=== PATIENT | female | born 1965 | race Two or more races ===

== ENCOUNTER 2020-05-02 14:47 | Inpatient (IN) | payer MEDICAID ==
[~2020-05-02] VITALS: Ht 167.6 cm; Wt 119.3 kg
[2020-05-02] MEDS ORDERED: VANCOMYCIN 1 GM in IV D5W 250 ML IV ONE (15:00)
[2020-05-02] MEDS ORDERED: CEFEPIME 1 GM in IV D5W 50 ML IV ONE (15:00)
[2020-05-02] MEDS ORDERED: DEXAMETHASONE SOD PHOSPHATE 10 MG/ML VIAL IV ONE (15:00)
[2020-05-02] MEDS ORDERED: IV NS 0.9% 1,897.6 ML IV ONE (15:30)
[2020-05-02 15:42] LABS: BASOPHILS % (AUTO) 0.4 % (0.0-2.0); EOSINOPHILS % (AUTO) 0.1 % (0.0-6.0); HEMATOCRIT 43 % (33-45); HEMOGLOBIN 14.2 g/dL (11.5-14.8); LYMPHOCYTES # (AUTO) 0.7 /CMM (0.8-4.8); LYMPHOCYTES % (AUTO) 11.7 % (20.0-44.0); MEAN CORPUSCULAR HGB CONC 33 g/dl (31.0-36.0); MEAN CORPUSCULAR VOLUME 88 fL (82-100); MONOCYTES # (AUTO) 0.6 /CMM (0.1-1.30); MONOCYTES % (AUTO) 9.6 % (2.0-12.0); NEUTROPHILS # (AUTO) 4.7 /CMM (1.8-8.9); NEUTROPHILS % (AUTO) 78.2 % (43.0-81.0); PLATELET COUNT (AUTO) 152 /CMM (150-450); RED BLOOD CELL COUNT(AUTO) 4.96 MIL/uL (4.0-5.2)
[2020-05-02 15:50] LABS: CALCIUM, SERUM 8.4 mg/dL (8.5-10.1); CARBON DIOXIDE 25 mmol/L (21-32); CHLORIDE 99 mmol/L (98-107); CREATININE 1.6 mg/dL (0.6-1.3); GLUCOSE 168 mg/dL (74-106); POTASSIUM 4.1 mmol/L (3.5-5.1); SODIUM SERUM 134 mmol/L (136-145); UREA NITROGEN, BLOOD 28 mg/dL (7-18)
[2020-05-02 15:57] LABS: ALANINE AMINOTRANSFERASE 41 U/L (12-78); ALBUMIN 2.6 g/dL (3.4-5.0); ALKALINE PHOSPHATASE 80 U/L (46-116); ASPARTATE AMINOTRANSFERASE 70 U/L (15-37); BILIRUBIN,DIRECT 0.2 mg/dL (0.0-0.2); BILIRUBIN,TOTAL 0.4 mg/dL (0.2-1.0); TOTAL PROTEIN, SERUM 7.5 g/dL (6.4-8.2)
--- NOTE | 2020-05-02 16:00 | NUR ---
LIZBET FROM HOME TO ER BED 7. AAOX3. BREATHING RAOID AND SHALLOW. BROUGHT IN FOR LOW O2 SAT, NOTED @ 71% ON RA. PT WAS PLACED ON HI FLOW O2 @ 50LPM BUT STILL SATTING @ 89%. INCREASE TO 60% HI FLOW AND NON REBREATHER MASK @ 15LPM, SATTING AT 91%. PT WAS REPORTED COVID POSITIVE. WAS AT THE BEDSIDE FOR EVAL. ORDERS RECEIVED, NOTED AND CARRIED OUT. IV LINE ESTABLISHED ON L AC 18G. BLOOD DRAWN AND GIVEN TO CAREER GUIDANCE COUNSELOR. WILL CONTINUE TO MONITOR
[2020-05-02] MEDS ORDERED: DEXAMETHASONE SOD PHOSPHATE 10 MG/ML VIAL ONE (16:07)
[2020-05-02 16:08] LABS: ABG OXYGEN SATURATION 85.3 % (92.0-98.5); ABG PCO2 34.7 mmHg (35.0-45.0); ABG PH 7.416 (7.350-7.450); ABG PO2 49.4 mmHg (75.0-100.0); AaDO2 628.9 mmHg; COHb 0.7 % (0.5-1.5); MetHb 0.4 % (0.0-1.5); O2Hb 84.4 % (94.0-97.0); SITE, ABG Right Radial; VENT MODE, BG HI FLO 60L 100%
--- NOTE | 2020-05-02 16:24 | NUR ---
PT NOTED HYPOTENSIVE. MD AWARE. NS FLUID CHALLENGE RUNNING.
--- NOTE | 2020-05-02 16:57 | NUR ---
ROOM ASSIGNMENT: [id number] ICU
--- NOTE | 2020-05-02 17:22 | NUR ---
REPORT GIVEN TO AMBERLY HAHN FOR GENARO
[2020-05-02] MEDS ORDERED: ONDANSETRON HCL/PF 4 MG/2 ML VIAL IVP PRN (17:30)
[2020-05-02] MEDS ORDERED: Z GUARD REMEDY 2 OZ OINT TP PRN (17:30)
[2020-05-02] MEDS ORDERED: ALBUTEROL SULFATE INH 18 GM HFA.AER.AD IH PRN (17:30)
[2020-05-02] MEDS ORDERED: ENOXAPARIN SODIUM 40 MG/0.4 ML DISP.SYRIN SQ SCH (18:00)
--- NOTE | 2020-05-02 18:08 | NUR ---
[facility] [phone]
--- NOTE | 2020-05-02 18:09 | NUR ---
pt transported to unit on gurney with EMT and RN at bedside w/ acls protocol. nad noted during transport.
[2020-05-02 19:00] VITALS: BP 123/77
--- NOTE | 2020-05-02 19:00 | NUR ---
SPONGE MAKER INITIAL SHIFT NOTES RECEIVED REPORT FROM DAY SHIFT NURSE. PATIENT IN BED, AWAKE, MARSHALLESE SPEAKING, ALERT AND ORIENTED X4, ABLE TO VERBALIZE NEEDS. MARSHALLESE SPEAKING STAFF AT BEDSIDE TO AID IN TRANSLATION. ON HI FLOW O2 @ 60LPM, FIO2 100% WITH NONREBREATHER ON TOP @ 15LPM, SATTING 86-88% BREATHING IS EVEN, TACHYPNEIC @ 35BPM, NONLABORED AT THIS TIME. LABORED BREATHING ONLY NOTED UPON EXERTION. SINUS RHYTHM ON LEAD MATERIAL HANDLER. ISOLATION PRECAUTIONS FOR COVID-19 OBSERVED. 2ND IV ACCESS OBTAINED, LEFT WRIST #[id number]. PLAN OF CARE DISCUSSED WITH THE PATIENT, WHOM VERBALIZES UNDERSTANDING, CALL LIGHT LEFT WITHIN EASY REACH, HOB KEPT ELEVATED TO AID IN BREATHING.
[2020-05-02 19:25] LABS: FERRITIN 796 ng/mL (8-388)
[2020-05-02] MEDS ORDERED: LOSA1TAB36 PO (19:37)
[2020-05-02 20:00] VITALS: BP 120/68
[2020-05-02] MEDS: AZITHROMYCIN 500 MG in IV D5W 250 ML IV SCH (20:00)
--- NOTE | 2020-05-02 20:00 | NUR ---
PROFESSOR/NURSE ANESTHETIST NOTES PATIENT ATTEMPTED TO VOID USING BEDBAN, BUT UNSUCCESSFUL. WHILE PROVIDING PARTIAL BED BATH, PATIENT IN RESPIRATORY DISTRESS WHILE TURNING. TURNER CATHETER INSERTED PER MD ORDER USING ASEPTIC TECHNIQUE, TOLERATED PROCEDURE WELL, WILL CONTINUE TO MONITOR
[2020-05-02 21:00] VITALS: BP 118/74
--- NOTE | 2020-05-02 21:00 | NUR ---
TUMBLER DRIER OPERATOR NOTES ATTEMPTED TO CALL FAMILY FOR UPDATES, BUT TELEPHONE NUMBER FROM CHART IS "DISCONNECTED". PER PATIENT, HER CELL PHONE NUMBER IS [phone]. ATTEMPTED TO ALSO CALL CELLPHONE, GOES TO VOICEMAIL. WILL TRY TO CALL CELLPHONE AGAIN AT LATER TIME. PATIENT MADE AWARE THAT WE ARE UNABLE TO REACH HER FAMILY. PER PATIENT, SHE CANNOT RECALL ANY OTHER PHONE NUMBERS
[2020-05-02 22:00] VITALS: BP 117/70
--- NOTE | 2020-05-02 22:00 | NUR ---
DOOR PATCHER NOTES RN ABLE TO SPEAK TO PATIENT'S DAUGHTER, TEJA. IRIS UPDATED REGARDING CURRENT STATUS AND PLAN OF CARE FOR THE PATIENT. PER TEJA, SHE WILL TRY TO CALL TOMORROW MORNING TO SPEAK TO THE PATIENT
[2020-05-02] MEDS: CEFTRIAXONE 1 G in IV D5W 50 ML IV SCH (22:10)
[2020-05-02 23:00] VITALS: BP 123/80
[2020-05-03] VITALS (24 sets, daily range): BP systolic 101–132; BP diastolic 64–78
[2020-05-03 00:10] LABS: ABG BASE EXCESS -5.8 mmol/L; ABG PCO2 30.4 mmHg (35.0-45.0); ABG PO2 70.1 mmHg (75.0-100.0); AaDO2 612.5 mmHg; MetHb 0.1 % (0.0-1.5); O2Hb 93.9 % (94.0-97.0); SITE, ABG Right Radial; VENT MODE, BG HFNC 60LPM 100%
--- NOTE | 2020-05-03 02:00 | NUR ---
SQL DEVELOPER NOTES SPO2 NOTED TO DROP TO THE LOW 80s. UPON ASSESSMENT, PATIENT IS CALM, NOT IN ANY ACUTE DISTRESS, STATES SHE IS ACTUALLY FEELING BETTER COMPARED TO THE START OF SHIFT. DUE TO LOWER THAN BASELINE SPO2, STAT ABG ORDERED BY CHARGE NURSE ED. DISCUSSED ABG RESULTS AND PATIENT'S CLINICAL PRESENTATION WITH DR BROOKS. PER DR BROOKS, CONTINUE TO MONITOR, NO NEW ORDERS OBTAINED AT THIS TIME. WILL CONTINUE TO MONITOR DIRECTED BY
[2020-05-03 05:04] LABS: BASOPHILS % (AUTO) 0.2 % (0.0-2.0); HEMATOCRIT 39 % (33-45); HEMOGLOBIN 12.9 g/dL (11.5-14.8); LYMPHOCYTES # (AUTO) 0.5 /CMM (0.8-4.8); LYMPHOCYTES % (AUTO) 10.4 % (20.0-44.0); MEAN CORPUSCULAR HGB CONC 33 g/dl (31.0-36.0); MEAN CORPUSCULAR VOLUME 88 fL (82-100); MONOCYTES # (AUTO) 0.5 /CMM (0.1-1.30); MONOCYTES % (AUTO) 10.4 % (2.0-12.0); PLATELET COUNT (AUTO) 164 /CMM (150-450); RED BLOOD CELL COUNT(AUTO) 4.47 MIL/uL (4.0-5.2); WHITE BLOOD COUNT (AUTO) 5.1 K/uL (4.3-11.0)
[2020-05-03 05:21] LABS: CALCIUM, SERUM 8.1 mg/dL (8.5-10.1); CREATININE 1.1 mg/dL (0.6-1.3); MAGNESIUM 2.1 mg/dL (1.8-2.4); PHOSPHORUS 2.7 mg/dL (2.5-4.9); POTASSIUM 4.4 mmol/L (3.5-5.1)
[2020-05-03 05:36] LABS: THYROID STIMULATING HORMONE 0.207 uIU/mL (0.358-3.74)
--- NOTE | 2020-05-03 06:30 | NUR ---
ELECTRIC MOTOR ASSEMBLER NOTES PATIENT RESTING IN BED, VERBALIZES THAT SHE IS FEELING BETTER COMPARED TO WHEN SHE FIRST CAME INTO THE HOSPITAL. REPOSITIONED FOR COMFORT. PATIENT REMAINS ON HFNC @ 60L/100% FIO2 AND NRM ON TOP @ 15LPM. SPO2 NOW HIGH 92%, BUT STILL NOTED TO DROP TO THE MID 80s ON OCCASION. WILL ENDORSE THE PATIENT TO THE AM SHIFT NURSE FOR CONTINUITY OF CARE
--- NOTE | 2020-05-03 07:30 | NUR ---
CLINICAL PHYSICIAN ASSISTANT AM NOTES RECEIVED PT IN BED, AWAKE, NORTHERN IRISH SPEAKING, ALERT AND ORIENTED X4, ABLE TO VERBALIZE NEEDS. NORTHER[place] IRISH SPEAKING STAFF AT BEDSIDE TO AID IN TRANSLATION. ON HI FLOW O2 @ 60LPM, FIO2 100% WITH NONREBREATHER ON TOP @ 15LPM, SATTING 88 - 93% BREATHING IS EVEN, TACHYPNEIC @ 30-38 BPM, NONLABORED AT THIS TIME. EXHIBITS LABORED BREATHING UPON EXERTION. SINUS RHYTHM ON SUPERVISOR PUBLICATIONS. LEFT AC G 18 WITH TKO, SITE CLEAR, LEFT WRIST G 20 FLUSHES WELL, SITE CLEAR, ISOLATION PRECAUTIONS FOR COVID-19 OBSERVED. BED REST FOR NOW, NO SKIN ISSUES, SOFT DIET, PLAN OF CARE DISCUSSED WITH THE PATIENT, VERBALIZED UNDERSTANDING, CALL LIGHT WITHIN EASY REACH, HOB KEPT ELEVATED TO AID IN BREATHING.SR UP X 2, BED LOW LOCKED, WILL CONTINUE TO MONITOR.
[2020-05-03 08:17] LABS: ABG BASE EXCESS -3.5 mmol/L; ABG OXYGEN SATURATION 89.9 % (92.0-98.5); ABG PCO2 35.1 mmHg (35.0-45.0); ABG PO2 58.4 mmHg (75.0-100.0); AaDO2 619.5 mmHg; COHb 0.2 % (0.5-1.5); MetHb 0.1 % (0.0-1.5); O2Hb 89.6 % (94.0-97.0); SITE, ABG Right Radial; VENT MODE, BG HFNC 100%
[2020-05-03] MEDS: PANTOPRAZOLE 40 MG TABLET.DR PO SCH (08:19)
[2020-05-03] MEDS: DEXAMETHASONE SOD PHOSPHATE 10 MG/ML VIAL IV SCH (08:20)
--- NOTE | 2020-05-03 09:30 | NUR ---
MINES SAFETY ENGINEER NOTES DUE MEDS GIVEN
[2020-05-03 14:29] LABS: ALBUMIN 2.2 g/dL (3.4-5.0); BILIRUBIN,DIRECT 0.1 mg/dL (0.0-0.2); BILIRUBIN,TOTAL 0.2 mg/dL (0.2-1.0); TOTAL PROTEIN, SERUM 6.8 g/dL (6.4-8.2)
[2020-05-03] MEDS: APIXABAN 5 MG TABLET PO SCH ×2 (14:55→17:00)
[2020-05-03] MEDS ORDERED: REMDESIVIR (CHARGED) 200 MG, *LOADING DOSE 1 EA in IV NS 0.9% 210 ML IV ONE (16:00)
[2020-05-03] MEDS: IV NS 0.9% 250 ML IV PRN (16:06)
--- NOTE | 2020-05-03 16:58 | NUR ---
TRAVEL MONEY ADVISOR NOTES REDEMSIVIR IV BAG 1 OF 4 STARTED.
--- NOTE | 2020-05-03 19:15 | NUR ---
SOFTWARE TESTING SPECIALIST CLOSING NOTES PATIENT RESTING, REMAINS AT 87%-92% 02 SATURATION WITH HFNC AND NRM. PATIENT UNABLE TO TOLERATE WITH MASK OFF. DESATURATES ON MILD EXERTION. NO SIGNIFICANT CHANGE IN CONDITION DURING THE WHOLE DAY SHIFT. ALL NEEDS MET AT THIS TIME. PM CARE DONE/TURNED/RESPOSITONEDQ 2 HOURS. FOR CONVALESCENT PLASMA TRANSFUSION. ENDORSED TO NEXT SHIFT FOR GENARO.
--- NOTE | 2020-05-03 19:30 | NUR ---
STEEL HEATER INITIAL SHIFT NOTES RECEIVED PATIENT IN BED, AWAKE, A/O X4. ON HFNC@ 60LPM / FIO2 100% WITH NRM @ 15LPM ON TOP, SPO2 IN THE LOW 80s. ALTHOUGH SPO2 IN THE LOW 80s, PATIENT NOT IN ACUTE DISTRESS. PATIENT IS CALM, ABLE TO ASSIST WITH TURNING, NOTED WITH INCREASED DYSPNEA UPON EXERTION, REPOSITIONED FOR COMFORT. BEDSIDE VALUE ENGINEER READS SINUS RHYTHM. TURNER CATHETER DRAINING YELLOW URINE VIA GRAVITY. WILL CONTINUE TO MONITOR
[2020-05-03] MEDS: AZITHROMYCIN 500 MG in IV D5W 250 ML IV SCH (20:05)
[2020-05-03] MEDS: CEFTRIAXONE 1 G in IV D5W 50 ML IV SCH (21:37)
[2020-05-03] MEDS: ACETAMINOPHEN 325 MG TABLET PO PRN (23:44)
[2020-05-04] VITALS (25 sets, daily range): BP systolic 104–137; BP diastolic 61–90
--- NOTE | 2020-05-04 | NUR ---
BATTERYMAN NOTES PATIENT WITH BM X1, ABLE TO USE BEDPAN. PARTIAL BEDBATH RENDERED PATIENT TOLERATED. REPOSITIONED FOR COMFORT. PATIENT REMAINS ON HFNC @ 60LPM/FIO2 100% WITH NRM @ 15LPM ON TOP, WITH BASELINE SPO2 LOW 80%. PATIENT MAINTAINS BASELINE MENTAL STATUS, TACHYPNEIC, BUT NOT IN ACUTE DISTRESS, CLAIMS SHE IS COMFORTABLE AT HIS TIME. ALL NEEDS ATTENDED TO
--- NOTE | 2020-05-04 02:01 | NUR ---
ICU RNN OTES PATIENTBS/P COVALESCENT PLAMA TRANSFUSION. PATIENT TOLERATED WELL, NO SIGNS AND SYMPTOMS OF ADVERSE TRANSFUSION REACTION AT THIS TIME. WILL CONTINUE TO MONITOR
--- NOTE | 2020-05-04 04:00 | NUR ---
OUTSOLE MOLDER NOTES PATIENT RESTING COMFORTABLY, SITTING UP IN BED. PATIENT REMAINS ON HFNC @60LPM / FIO2 100% WITH NRM @ 15LPM ON TOP. SPO2 NOW IN THE UPPER 70s - MID 80s, BUT NOT IN ACUTE DISTRESS, NO CHANGE IN MENTAL STATUS, BREATHING EVEN, SLIGHTLY TACHYPNEIC. ALL NEEDS MET. WILL CONTINUE TO MONITOR
[2020-05-04 04:58] LABS: BASOPHILS % (AUTO) 0.1 % (0.0-2.0); HEMATOCRIT 38 % (33-45); HEMOGLOBIN 12.4 g/dL (11.5-14.8); LYMPHOCYTES # (AUTO) 0.5 /CMM (0.8-4.8); LYMPHOCYTES % (AUTO) 5.4 % (20.0-44.0); MEAN CORPUSCULAR HGB CONC 33 g/dl (31.0-36.0); MEAN CORPUSCULAR VOLUME 88 fL (82-100); MONOCYTES % (AUTO) 11.8 % (2.0-12.0); NEUTROPHILS # (AUTO) 7.2 /CMM (1.8-8.9); NEUTROPHILS % (AUTO) 82.7 % (43.0-81.0); PLATELET COUNT (AUTO) 217 /CMM (150-450); RED BLOOD CELL COUNT(AUTO) 4.36 MIL/uL (4.0-5.2); WHITE BLOOD COUNT (AUTO) 8.7 K/uL (4.3-11.0)
--- NOTE | 2020-05-04 05:00 | NUR ---
CLINICAL BIOCHEMICAL GENETICIST NOTES PATIENT RESTING COMFORTABLY, SITTING UP IN BED. PATIENT REMAINS ON HFNC @60LPM / FIO2 100% WITH NRM @ 15LPM ON TOP. SPO2 NOW IN THE UPPER 70s - MID 80s, BUT NOT IN ACUTE DISTRESS, NO CHANGE IN MENTAL STATUS, BREATHING EVEN, SLIGHTLY TACHYPNEIC, REMAINS CALM. DR BROOKS MADE AWARE OF LATEST SPO2 AND PATIENT PRESENTATION, NO NEW ORDERS AT THIS TIME. ALL NEEDS MET. WILL CONTINUE TO MONITOR
[2020-05-04 05:32] LABS: ALBUMIN 2.3 g/dL (3.4-5.0); BILIRUBIN,TOTAL 0.3 mg/dL (0.2-1.0); CALCIUM, SERUM 8.4 mg/dL (8.5-10.1); CREATININE 0.9 mg/dL (0.6-1.3); MAGNESIUM 2.3 mg/dL (1.8-2.4); PHOSPHORUS 2.6 mg/dL (2.5-4.9); POTASSIUM 4.4 mmol/L (3.5-5.1); TOTAL PROTEIN, SERUM 6.8 g/dL (6.4-8.2)
--- NOTE | 2020-05-04 06:30 | NUR ---
FINDING FASTENER NOTES URINE SPECIMEN COLLECTED, SENT TO LAB FOR TESTING ORDERED. PATIENT REMAINS SITTING UP IN BED, CONTINUES TO ON HFNC @ 60LPM/100% FIO2, NO ACUTE DISTRESS NOTED. BREATHING NONLABORED. WILL ENDORSE THE PATIENT TO THE DAY SHIFT NURSE FOR GENARO
--- NOTE | 2020-05-04 07:15 | NUR ---
received COVID+ patient on highflow nasal cannula 60L/100%FiO2 +nonrebreather mask. SPO2 75-80%, no shortness or breath or respiratory distress noted, respirations even/unlabored RR 30
--- NOTE | 2020-05-04 08:00 | NUR ---
patient remains A/Ox4, Icelandic speaking, saying she feels better than yesterday. Educated to breath in through her mouth and out through her nose, HOB elevated and mask repositioned. SPO2 87-90%. No SOB noted. Patient appears comfortable. ABG done - pO2 43.9, Dr. Reynolds aware, orders to redraw ABG in two hours and monitor closely. Patient seen by Dr. Reynolds. 99.6F temp ax.
--- NOTE | 2020-05-04 08:05 | NUR ---
Per patient, daughter Ada Arroyo [phone] decision maker if necessary. Facesheet updated as no emergency contact listed
[2020-05-04] MEDS: LOSARTAN POTASSIUM 50 MG TABLET PO SCH (08:11)
[2020-05-04] MEDS: PANTOPRAZOLE 40 MG TABLET.DR PO SCH (08:11)
[2020-05-04] MEDS: HYDROCHLOROTHIAZIDE 25 MG TABLET PO SCH (08:11)
[2020-05-04] MEDS: DEXAMETHASONE SOD PHOSPHATE 10 MG/ML VIAL IV SCH (08:12)
[2020-05-04] MEDS: APIXABAN 5 MG TABLET PO SCH ×2 (08:13→18:18)
[2020-05-04 08:28] LABS: ABG BASE EXCESS -1.2 mmol/L; ABG OXYGEN SATURATION 79.4 % (92.0-98.5); ABG PO2 43.9 mmHg (75.0-100.0); AaDO2 633.1 mmHg; COHb 0.3 % (0.5-1.5); MetHb 0.1 % (0.0-1.5); O2Hb 79.1 % (94.0-97.0); SITE, ABG Left Radial; VENT MODE, BG HFNC 60L 100%
--- NOTE | 2020-05-04 10:30 | NUR ---
f/u ABG - pO2 50.2, Dr. Reynolds aware, patient remains on HFNC 60L/100% FiO2 + nonrebreather. SPO2 86-90%, respirations unlabored and patient alert. Per Dr. Reynolds, if SPO2 <85%, inform him Addendum: 05/04/20 at 1108 by ALETHA MANCUSO RN RN at [facility] for close monitoring
[2020-05-04 10:57] LABS: ABG BASE EXCESS -2.1 mmol/L; ABG OXYGEN SATURATION 86.1 % (92.0-98.5); ABG PCO2 34.9 mmHg (35.0-45.0); ABG PH 7.414 (7.350-7.450); ABG PO2 50.7 mmHg (75.0-100.0); AaDO2 627.4 mmHg; COHb 0.1 % (0.5-1.5); MetHb 0.1 % (0.0-1.5); O2Hb 85.9 % (94.0-97.0); SITE, ABG Left Radial; VENT MODE, BG HFNC 60L 100%
[2020-05-04] MEDS: ACETAMINOPHEN 325 MG TABLET PO PRN (12:34)
[2020-05-04 16:09] LABS: BILIRUBIN,URINE NEGATIVE (NEGATIVE); COLOR,URINE DARK YELLOW (YELLOW); LEUKOCYTE ESTERASE ,URINE NEGATIVE (NEGATIVE); NITRITE, URINE NEGATIVE (NEGATIVE); PROTEIN,URINE TRACE mg/dl (NEGATIVE); UGLUCOSE NEGATIVE (NEGATIVE); UROBILINOGEN,URINE 0.2 EU/dL (0.2)
[2020-05-04] MEDS: REMDESIVIR (CHARGED) 100 MG in IV NS 0.9% 230 ML IV SCH (16:27)
[2020-05-04 16:38] LABS: CREATININE, URINE 144.6 MG/DL (30.0-125.0); URINE TOTAL PROTEIN 63.7 mg/dL (0-11.9)
[2020-05-04 17:48] LABS: WBC,URINE 0-3 /HPF (0-3)
[2020-05-04 17:49] LABS: BACTERIA,URINE Few /HPF (None Seen); SQUAMOUS EPITHELIAL CELL,UR Rare /HPF (None Seen); YEAST,URINE Moderate /HPF (None Seen)
[2020-05-04 17:50] LABS: RBC,URINE 0-3 /HPF (0-2)
[2020-05-04 17:51] LABS: HYALINE CASTS, URINE Rare /LPF (None Seen)
[2020-05-04 19:56] LABS: EOSINOPHIL,URINE None Seen
[2020-05-04] MEDS: AZITHROMYCIN 500 MG in IV D5W 250 ML IV SCH (20:51)
[2020-05-04] MEDS: CEFTRIAXONE 1 G in IV D5W 50 ML IV SCH (21:59)
[2020-05-05] VITALS (26 sets, daily range): BP systolic 91–142; BP diastolic 58–98
[2020-05-05 04:33] LABS: BASOPHILS % (AUTO) 0.1 % (0.0-2.0); HEMATOCRIT 39 % (33-45); HEMOGLOBIN 12.6 g/dL (11.5-14.8); LYMPHOCYTES # (AUTO) 0.4 /CMM (0.8-4.8); LYMPHOCYTES % (AUTO) 4.5 % (20.0-44.0); MEAN CORPUSCULAR HGB CONC 33 g/dl (31.0-36.0); MEAN CORPUSCULAR VOLUME 88 fL (82-100); MONOCYTES # (AUTO) 0.9 /CMM (0.1-1.30); MONOCYTES % (AUTO) 10.2 % (2.0-12.0); NEUTROPHILS # (AUTO) 7.7 /CMM (1.8-8.9); NEUTROPHILS % (AUTO) 85.2 % (43.0-81.0); PLATELET COUNT (AUTO) 237 /CMM (150-450); RED BLOOD CELL COUNT(AUTO) 4.42 MIL/uL (4.0-5.2)
--- NOTE | 2020-05-05 04:41 | NUR ---
RT PT RECVD ON HFNC 60LPM 100% WITH A NRB 100%. PT AWAKE AND ALERT, SPOKE CANADIAN WITH PATIENT AND SHE EXPLAINED THAT SHE WAS COMFORTABLE AND IN NO RESPIRATORY DISTRESS. CHANGED HFNC WATER BAG PRN AND DID Q2 CHECKS ON PATIENT. SATURATION REMAINED IN THE LOW 90'S THROUGHOUT MOST OF MY SHIFT.
[2020-05-05 04:48] LABS: ALBUMIN 2.4 g/dL (3.4-5.0); BILIRUBIN,DIRECT 0.2 mg/dL (0.0-0.2); BILIRUBIN,TOTAL 0.3 mg/dL (0.2-1.0); CALCIUM, SERUM 8.4 mg/dL (8.5-10.1); CREATININE 0.8 mg/dL (0.6-1.3); POTASSIUM 4.3 mmol/L (3.5-5.1); TOTAL PROTEIN, SERUM 6.8 g/dL (6.4-8.2)
--- NOTE | 2020-05-05 07:03 | NUR ---
ICU Closing COVID+. Patient remains on 15L nonrebreather mask +high flow nasal cannula 60L 100% FiO2. SPO2 throughout night 88-96% with periods where SPO2 appears low but then shortly climbs back up ?sensor issue? No shortness of breath or respiratory distress. Patient states she feels better. Respirations even, unlabored, RR 20-34bpm. Noted desat to 80s when layed flat to clean. A/Ox4, Divehi speaking only. SR HR 50s-60s. BP WNL. Tmax 99.3F ax. Able to take small bites, otherwise desats when NRM off. Quan draining clear yellow urine to gravity, see I&O. BM x1, liquid, brown, small amount. Skin remains intact. Turned per protocol, reminded to deep breath and cough. L AC 18G @TKO, L W 20G SL, patent, intact, no s/s infiltration or erythema. HOB high fowlers. Suction at bedside.
--- NOTE | 2020-05-05 07:20 | NUR ---
RN OPENING NOTE - ICU Received patient awake in bed appears calm and relaxed. On High Flow 60L Fio2 100% and Non rebreather mask 15L tolerating well o2 sat @ 92%. AO x4 Latvian Speaking understand a little bit of Upper Sorbian. Noted with bradycardia of 55-60bpm. Quan catheter draining clear yellow urine. Has LAC #18 running TKO NS 10ml/hr and a L Wrist #20 saline lock. No co pain or discomfort at this time. Bed locked and on lowest position. Call light within reach. Will cont to monitor.
[2020-05-05] MEDS: PANTOPRAZOLE 40 MG TABLET.DR PO SCH (08:00)
[2020-05-05 08:05] LABS: ABG BASE EXCESS -1.4 mmol/L; ABG OXYGEN SATURATION 94.4 % (92.0-98.5); ABG PCO2 33.3 mmHg (35.0-45.0); ABG PH 7.439 (7.350-7.450); AaDO2 608.7 mmHg; COHb 0.4 % (0.5-1.5); MetHb 0.3 % (0.0-1.5); O2Hb 93.7 % (94.0-97.0); SITE, ABG Left Radial; VENT MODE, BG HFNC 60L 100%
[2020-05-05 08:12] LABS: PTH, INTACT 38 pg/mL (15-65)
[2020-05-05] MEDS: DEXAMETHASONE SOD PHOSPHATE 10 MG/ML VIAL IV SCH (08:42)
[2020-05-05] MEDS: LOSARTAN POTASSIUM 50 MG TABLET PO SCH (08:43)
[2020-05-05] MEDS: APIXABAN 5 MG TABLET PO SCH ×2 (08:46→17:18)
[2020-05-05] MEDS: HYDROCHLOROTHIAZIDE 25 MG TABLET PO SCH (08:53)
[2020-05-05] MEDS: IV NS 0.9% 250 ML IV PRN (14:54)
[2020-05-05 15:07] LABS: *SPE A/G RATIO 0.7 (0.7-1.7); *SPE ALBUMIN 2.4 g/dL (2.9-4.4); *SPE ALPHA-1-GLOBULIN 0.3 g/dL (0.0-0.4); *SPE ALPHA-2-GLOBULIN 1.1 g/dL (0.4-1.0); *SPE GLOBULIN, TOTAL 3.6 g/dL (2.2-3.9); *SPE M-SPIKE Not Observed g/dL (Not Observed); *SPEGAMMA GLOBULIN 1.1 g/dL (0.4-1.8)
[2020-05-05] MEDS: REMDESIVIR (CHARGED) 100 MG in IV NS 0.9% 230 ML IV SCH (17:26)
--- NOTE | 2020-05-05 18:56 | NUR ---
RN CLOSING NOTE - ICU Patient in bed awake sleeps intermittently. Still on Highflow 60L 100% and non-rebreather mask 15L tolerating well. O2 sat 90-92%. AO X4 Indonesian Speaking no co pain or discomfort. Tele reading SR 60-70s. Quan catheter drained 800ML clear yellow urine. Has LAC #18 flushes well and L hand #20 flushes well. All due meds given. Vital signs maintained within normal limits. All needs met. Kept clean and comfortable. Assisted with minimal ADLs. Offered oral hydration. Safety measures maintained. Call light within reach. Bed locked and on lowest position. Will endorse to optical glass wet inspector nurse for bladimir.
--- NOTE | 2020-05-05 19:30 | NUR ---
RN NOTE RECEIVED REPORT FROM SEVERO GAMING, PATIENT IN BED ON HIGH BUI'S, AO X 4, YORUBA SPEAKING. PATIENT IN NO S/SX OF ACUTE DISTRESS AT THIS TIME. PATIENT'S BREATHING IS EVEN AND UNLABORED. PATIENT IS ON 60L OF OXYGEN VIA HIGHFLOW NC, AND 15L ON NON-REBREATHER MASK, TOLERATING WELL, SATURATING AT 95%. PATIENT ON INDUSTRIAL ORGANIZATION MANAGER READING SR, HR IS 65. NOTED IV SITE AT LAC 18G WITH NS AT TKO, AND LW 20G SALINE LOCKED, BOTH PATENT AND FLUSHING WELL, NO S/S OF INFECTION OR INFILTRATION. TURNER CATHETER CONNECTED TO URINE BAG IN PLACE DRAINING TO A CLEAR YELLOW OUTPUT. SAFETY MEASURES IMPLEMENTED PER PROTOCOL. PATIENT BED ALARM IS ON. HEAD OF BED ELEVATED. BED IS LOCKED, IN LOWEST POSITION AND SIDE RAILS UP. CALL LIGHT WITHIN REACH OF THE PATIENT. WILL CONTINUE TO MONITOR AND REASSESS FOR ANY CHANGES.
[2020-05-05] MEDS: AZITHROMYCIN 250 MG TABLET PO SCH (19:38)
[2020-05-05] MEDS: CEFTRIAXONE 1 G in IV D5W 50 ML IV SCH (20:01)
[2020-05-06] VITALS (25 sets, daily range): BP systolic 106–144; BP diastolic 58–90
[2020-05-06 05:01] LABS: BASOPHILS % (AUTO) 0.1 % (0.0-2.0); HEMATOCRIT 40 % (33-45); HEMOGLOBIN 12.9 g/dL (11.5-14.8); LYMPHOCYTES # (AUTO) 0.4 /CMM (0.8-4.8); LYMPHOCYTES % (AUTO) 3.5 % (20.0-44.0); MEAN CORPUSCULAR HGB CONC 33 g/dl (31.0-36.0); MEAN CORPUSCULAR VOLUME 88 fL (82-100); MONOCYTES # (AUTO) 0.8 /CMM (0.1-1.30); MONOCYTES % (AUTO) 7.6 % (2.0-12.0); NEUTROPHILS # (AUTO) 9.3 /CMM (1.8-8.9); NEUTROPHILS % (AUTO) 88.8 % (43.0-81.0); PLATELET COUNT (AUTO) 273 /CMM (150-450); RED BLOOD CELL COUNT(AUTO) 4.52 MIL/uL (4.0-5.2); WHITE BLOOD COUNT (AUTO) 10.4 K/uL (4.3-11.0)
[2020-05-06 05:22] LABS: ALBUMIN 2.4 g/dL (3.4-5.0); BILIRUBIN,DIRECT 0.2 mg/dL (0.0-0.2); BILIRUBIN,TOTAL 0.3 mg/dL (0.2-1.0); CALCIUM, SERUM 8.5 mg/dL (8.5-10.1); CREATININE 0.7 mg/dL (0.6-1.3); TOTAL PROTEIN, SERUM 6.7 g/dL (6.4-8.2)
[2020-05-06] MEDS: PANTOPRAZOLE 40 MG TABLET.DR PO SCH (06:44)
[2020-05-06] MEDS: DEXAMETHASONE SOD PHOSPHATE 10 MG/ML VIAL IV SCH (10:15)
[2020-05-06] MEDS: LOSARTAN POTASSIUM 50 MG TABLET PO SCH (10:15)
[2020-05-06] MEDS: HYDROCHLOROTHIAZIDE 25 MG TABLET PO SCH (10:15)
[2020-05-06] MEDS: APIXABAN 5 MG TABLET PO SCH ×2 (10:22→17:54)
[2020-05-06] MEDS: REMDESIVIR (CHARGED) 100 MG in IV NS 0.9% 230 ML IV SCH (15:51)
--- NOTE | 2020-05-06 19:00 | NUR ---
Received patient on Contact/Droplet isolation, COVID 19 + ,awake,alert,speaks only Czech but understands a little German with gestures,seems coherent and appropriate .ON HIGH FLOW O2 with NRM 100 %.At rest + SOB ,with deep insipiratory effort,even with speaking,saturating in the 80's ,RR in the 30's.Calm ,cooperative,psychological support,encorgaed to take slow deep breaths when feeling short of breath.Will closely monitor respiratory status..
--- NOTE | 2020-05-06 19:07 | NUR ---
END OF SHIFT NOTE: NO SIGNIFICANT EVENTS THIS SHIFT. PT CONTINUES TO BE ON NRB 15L, 100% AND HI-FLOW NASAL CANNULA 60L 95%. 650ML OUT OF TURNER THIS SHIFT. PT CHECKED ON HOURLY AND PRN BY NURSING STAFF.
[2020-05-06] MEDS: AZITHROMYCIN 250 MG TABLET PO SCH (19:40)
[2020-05-06] MEDS: CEFTRIAXONE 1 G in IV D5W 50 ML IV SCH (20:45)
[2020-05-06] MEDS: IV NS 0.9% 250 ML IV PRN (21:57)
--- NOTE | 2020-05-06 22:00 | NUR ---
No change in condition ,remains tachypneic,slightly labored breathing ,saturating 80's.
[2020-05-07] VITALS (62 sets, daily range): BP systolic 59–183; BP diastolic 29–106
--- NOTE | 2020-05-07 | NUR ---
Asleep,noted saturation to be in the low 80's (81-83 % ) while asleep but not in any acute respiratory distress.Awaken patient occasionally to take deep breaths.
--- NOTE | 2020-05-07 04:00 | NUR ---
Condition unchanged,guarded, still on High Flow 60 liters /100 % FI2 with NRM 100 % ,still only saturating in the 80's at times drops in the high 70's while asleep. Occasionally wake patient up and instructed to do breathing exercises (deep breaths,cough) saturation would improve to 88-90% only ,+ MOREIRA and tachypnea with deep inspiratory effort but not in any acute respiratory distress. Will continue to closely monitor.
[2020-05-07 04:59] LABS: BASOPHILS % (AUTO) 0.1 % (0.0-2.0); HEMATOCRIT 39 % (33-45); HEMOGLOBIN 12.9 g/dL (11.5-14.8); LYMPHOCYTES # (AUTO) 0.4 /CMM (0.8-4.8); LYMPHOCYTES % (AUTO) 2.8 % (20.0-44.0); MEAN CORPUSCULAR HGB CONC 33 g/dl (31.0-36.0); MEAN CORPUSCULAR VOLUME 87 fL (82-100); MONOCYTES # (AUTO) 0.9 /CMM (0.1-1.30); MONOCYTES % (AUTO) 6.7 % (2.0-12.0); NEUTROPHILS # (AUTO) 11.7 /CMM (1.8-8.9); NEUTROPHILS % (AUTO) 90.4 % (43.0-81.0); PLATELET COUNT (AUTO) 254 /CMM (150-450)
[2020-05-07 05:21] LABS: ALBUMIN 2.3 g/dL (3.4-5.0); BILIRUBIN,DIRECT 0.2 mg/dL (0.0-0.2); BILIRUBIN,TOTAL 0.4 mg/dL (0.2-1.0); CALCIUM, SERUM 8.3 mg/dL (8.5-10.1); CREATININE 0.7 mg/dL (0.6-1.3); POTASSIUM 3.8 mmol/L (3.5-5.1); TOTAL PROTEIN, SERUM 6.4 g/dL (6.4-8.2)
--- NOTE | 2020-05-07 06:00 | NUR ---
REMAINS CALM ,STILL ON HIGH FLOW AND NRM 100 %.NOT IN ACUTE RESPIRATORY DISTRESS BUT ONLY SATURATING 79=85%.
--- NOTE | 2020-05-07 07:00 | NUR ---
REPORT GIVEN TO ISIDRO GAMING.
[2020-05-07] MEDS: PANTOPRAZOLE 40 MG TABLET.DR PO SCH (07:30)
[2020-05-07 08:37] LABS: ABG BASE EXCESS 2.5 mmol/L; ABG OXYGEN SATURATION 79.7 % (92.0-98.5); ABG PCO2 37.7 mmHg (35.0-45.0); ABG PO2 41.9 mmHg (75.0-100.0); AaDO2 633.4 mmHg; COHb 0.5 % (0.5-1.5); MetHb 0.2 % (0.0-1.5); O2Hb 79.1 % (94.0-97.0); SITE, ABG Right Radial; VENT MODE, BG HI FLO NC 60L 100% +NRB
[2020-05-07] MEDS: HYDROCHLOROTHIAZIDE 25 MG TABLET PO SCH (09:00)
[2020-05-07] MEDS: APIXABAN 5 MG TABLET PO SCH (09:00)
[2020-05-07] MEDS: LOSARTAN POTASSIUM 50 MG TABLET PO SCH (09:00)
--- NOTE | 2020-05-07 09:25 | NUR ---
rt note pt intubated by anesthesiologist with a 7.5 ET @ 25cm lip line. ETT secured and in place. patient stable with no sob noted at this time. awaiting xray to confirm ett location. will continue to monitor.
--- NOTE | 2020-05-07 09:25 | NUR ---
PT INTUBATED AT THIS TIME PER MD ORDERS. PT WAS EXPLAINED IN POLISH THE NEED FOR INTUBATED. DR. CHAVES SPOKE TO PT'S DAUGHTER IRIS PRIOR TO PATIENT MAKING DECISION. PT'S DAUGHTER IRIS AND PATIENT SPOKE AFTER IRIS SPOKE TO DR. CHAVES. AFTER PHONE CALL WITH DAUGHTER PT AGREED TO BE INTUBATED. PT WAS INTUBATED 7.5, 25 AT LIP, AC 16, TV 550 P10 100%. RESTRAINTS APPLIED, OG TUBE INSERTED. PT MODERATE AGITATION AFTER INTUBATION, AWAITING CHEST XRAY TO VERIFY PLACEMENT. PER PT'S ETT MIGHT BE IN TOO FAR.
[2020-05-07] MEDS ORDERED: PROPOFOL 100 ML IV PRN ×2 (09:30→19:30)
[2020-05-07] MEDS: PROPOFOL 10MG/ML 50ML 50 ML IV PRN ×6 (09:30→19:48)
[2020-05-07] MEDS ORDERED: PHARMACY TO CHANGE PO MEDS TO GT/NG XX PRN (10:00)
[2020-05-07] MEDS ORDERED: PROPOFOL 10MG/ML 50ML 50 ML IV PRN ×2 (10:00→19:00)
[2020-05-07] MEDS ORDERED: LOSARTAN POTASSIUM 50 MG TABLET NG SCH (10:00)
[2020-05-07] MEDS ORDERED: HYDROCHLOROTHIAZIDE 25 MG TABLET NG SCH (10:01)
--- NOTE | 2020-05-07 10:36 | NUR ---
ETT PULLED BACK 6CM BY RT PER MD ORDERS AFTER VIEWING CHEST XRAY. FOLLOWING ETT ADJUSTMENT PT APPEARED TO BE LESS AGITATED.
[2020-05-07 11:51] LABS: ABG BASE EXCESS 1.5 mmol/L; ABG PH 7.468 (7.350-7.450); ABG PO2 81.5 mmHg (75.0-100.0); AaDO2 596.5 mmHg; COHb 0.2 % (0.5-1.5); MetHb 0.1 % (0.0-1.5); O2Hb 95.7 % (94.0-97.0); PEEP,BG 10 cm H2O; SITE, ABG Right Radial; VT, ABG 550 mL
[2020-05-07] MEDS: DEXAMETHASONE SOD PHOSPHATE 10 MG/ML VIAL IV SCH (12:12)
[2020-05-07] MEDS: PANTOPRAZOLE 40 MG/PACK PACK NG SCH (12:12)
[2020-05-07] MEDS: AZITHROMYCIN 250 MG TABLET NG SCH (12:12)
[2020-05-07] MEDS ORDERED: ETOMIDATE 2 MG/ML VIAL IV ONE (12:13)
[2020-05-07] MEDS: APIXABAN 5 MG TABLET NG SCH ×2 (12:13→17:17)
[2020-05-07] MEDS ORDERED: SUCCINYLCHOLINE CHLORIDE 20 MG/ML VIAL IV ONE (12:13)
[2020-05-07] MEDS: REMDESIVIR (CHARGED) 100 MG in IV NS 0.9% 230 ML IV SCH (16:18)
[2020-05-07] MEDS: IV NS 0.9% 250 ML IV PRN (16:40)
[2020-05-07] MEDS ORDERED: ACETAMINOPHEN 325 MG TABLET PO ONE (17:00)
[2020-05-07] MEDS ORDERED: diphenhydrAMINE HCL 50 MG/ML VIAL IV ONE (17:00)
[2020-05-07] MEDS: NOREPINEPHRINE 8 MG in IV NS 0.9% 242 ML IV PRN (17:19)
[2020-05-07] MEDS ORDERED: TOCILIZUMAB 400 MG in IV NS 0.9% 80 ML IV ONE (18:00)
--- NOTE | 2020-05-07 19:20 | NUR ---
ICU/AIR HAMMER STRIPPER RECEIVED REPORT FROM DAY NURSE. SEE FLOWSHEET FOR ASSESSMENT,THERE ARE NO SKIN ISSUES THAT ARE ADDRESSED. PT IS SEDATED. PT HAS O/G TUBE THAT IS CLAMPED. PT IS ORALLY INTUBATED, TOLERATING CURRENT VENT SETTINGS WITH SATURATION AT 100%. TURNER CATH DRAINING YELLOW URINE WITH SEDIMENTS. PT WAS TURN AND REPOSITION FOR COMFORT AND CARE. WILL CONTINUE TO MONITOR THIS PT, NO ACUTE DISTRESS SEEN AT THIS
--- NOTE | 2020-05-07 19:30 | NUR ---
END OF SHIFT NOTE: LEVOPHED WAS STARTED PER MD ORDERS. CENTRAL LINE INSERTION IS BEING DONE AT THIS TIME BY DR SANDRA WILLAMS, WILL ENDORSE TO NEXT SHIFT. 2ND UNIT OF CONVALESENT PLASMA ORDERED, TYPE AND SCREEN DRAWN, PENDING FROM BLOOD BANK. PROPOFOL INFUSING PER MD ORDERS. PT CHECKED ON HOURLY AND PRN BY NURSING STAFF.
--- NOTE | 2020-05-07 20:17 | NUR ---
ICU/LAB SUPPORT SERVICE TECH RIGHT IJ PLACED BY SANDRA VALENTINO. CXR IS DONE STAT FOR LINE PALCEMENT.
[2020-05-07] MEDS: CEFTRIAXONE 1 G in IV D5W 50 ML IV SCH (20:44)
[2020-05-07] MEDS: PROPOFOL 100 ML IV PRN (21:52)
--- NOTE | 2020-05-07 22:00 | NUR ---
ICU/SPONGE FISHERMAN CHARGE NURSE ED HAS BEEN TITRATING DOWN SEDATION PER MD ORDERS AND HOSPITAL PROTOCAL. WILL CONTINUE TO MONITOR THIS PT'S BLOOD PRESSURE, HEART RATE, AND NEURO STATUS . SEE IV SPREAD SHEET FOR TITRATION TO THESE.
--- NOTE | 2020-05-07 23:17 | NUR ---
ICU/FIELD ENUMERATOR CHARGE NURSE ED HAS BEEN TITRATING DOWN LEVO PER MD ORDERS AND HOSPITAL PROTOCAL. WILL CONTINUE TO MONITOR THIS PT'S BLOOD PRESSURE. SEE IV SPREAD SHEET FOR TITRATION AND THE BLOOD PRESSURE TO THESE.
[2020-05-08] VITALS (48 sets, daily range): BP systolic 86–144; BP diastolic 56–84
[2020-05-08] MEDS: PROPOFOL 100 ML IV PRN ×4 (00:57→18:39)
--- NOTE | 2020-05-08 02:00 | NUR ---
ICU/SPOT SPRAYER RT DECREASED THE FIO2 OLEG TO 80% FROM 100%. WILL CONTINUE TO MONITOR THIS PT AND HER SATURATION.
--- NOTE | 2020-05-08 03:10 | NUR ---
ICU/MERCHANDISE BUYER RT DECREASED THE FIO2 OLEG TO 60% FROM 80%. WILL CONTINUE TO MONITOR THIS PT AND HER SATURATION.
--- NOTE | 2020-05-08 03:20 | NUR ---
RT NOTE Pt received intubated and on [facility] vent w ordered settings. Vent is plugged into red outlet. Alarms are set and audible w bmv @ hob. Airway is patent and secure. No resp distress noted t/o shift. Will continue to monitor. Addendum: 05/08/20 at 0320 by PERLA VALENCIA RT Amended: Links added.
[2020-05-08 05:30] LABS: BASOPHILS % (AUTO) 0.1 % (0.0-2.0); HEMATOCRIT 39 % (33-45); HEMOGLOBIN 12.6 g/dL (11.5-14.8); LYMPHOCYTES # (AUTO) 0.3 /CMM (0.8-4.8); MEAN CORPUSCULAR HGB CONC 32 g/dl (31.0-36.0); MEAN CORPUSCULAR VOLUME 88 fL (82-100); MONOCYTES # (AUTO) 0.5 /CMM (0.1-1.30); MONOCYTES % (AUTO) 3.6 % (2.0-12.0); NEUTROPHILS # (AUTO) 14.3 /CMM (1.8-8.9); NEUTROPHILS % (AUTO) 94.3 % (43.0-81.0); PLATELET COUNT (AUTO) 266 /CMM (150-450); RED BLOOD CELL COUNT(AUTO) 4.47 MIL/uL (4.0-5.2); WHITE BLOOD COUNT (AUTO) 15.2 K/uL (4.3-11.0)
[2020-05-08 05:58] LABS: ALBUMIN 2.1 g/dL (3.4-5.0); BILIRUBIN,DIRECT 0.3 mg/dL (0.0-0.2); BILIRUBIN,TOTAL 0.5 mg/dL (0.2-1.0); CALCIUM, SERUM 8.3 mg/dL (8.5-10.1); CREATININE 0.9 mg/dL (0.6-1.3); POTASSIUM 3.9 mmol/L (3.5-5.1); TOTAL PROTEIN, SERUM 6.3 g/dL (6.4-8.2)
--- NOTE | 2020-05-08 06:40 | NUR ---
ICU/AUTOMOTIVE ENGINEERING TECHNICIAN CRITICAL LAB VALUE OF GLUCOSE OF 350, CALLED THE ELECTRICAL TEST ENGINEER TO GET COVERAGE FOR THIS AND ALSO START ACCUCHECKS. WAIT FOR CALL BACK ON THIS.
--- NOTE | 2020-05-08 08:00 | NUR ---
agriculture worker received pt in bed intubated, sedated on propofol pt opens eyes by touch follows commands, held levophed as sbp 150s, noticed chest xray regarding tube placement rt aware and will follow up regarding tube positioning, iv access patent infusing tko and propofol, gallego patent draining urine, turn and reposition in bed safety measures taken call light w/ in reach will cont to monitor.
[2020-05-08] MEDS: PANTOPRAZOLE 40 MG/PACK PACK NG SCH (08:22)
[2020-05-08] MEDS: AZITHROMYCIN 250 MG TABLET NG SCH (08:22)
[2020-05-08] MEDS: DEXAMETHASONE SOD PHOSPHATE 10 MG/ML VIAL IV SCH (08:22)
[2020-05-08] MEDS: APIXABAN 5 MG TABLET NG SCH ×2 (08:23→17:15)
[2020-05-08 08:30] LABS: ABG BASE EXCESS -0.9 mmol/L; ABG OXYGEN SATURATION 88.1 % (92.0-98.5); ABG PCO2 32.2 mmHg (35.0-45.0); ABG PH 7.456 (7.350-7.450); ABG PO2 51.6 mmHg (75.0-100.0); AaDO2 340.8 mmHg; COHb 0.6 % (0.5-1.5); MetHb 0.3 % (0.0-1.5); O2Hb 87.3 % (94.0-97.0); SITE, ABG Left Radial; VENT MODE, BG AC 16 500 60% +12
--- NOTE | 2020-05-08 10:29 | NUR ---
Et-tube advanced to 22cm per MD order Addendum: 05/08/20 at 1030 by GOLDIE KO RT Amended: Links added.
--- NOTE | 2020-05-08 18:32 | NUR ---
icu manager all pt needs meet no distress noted during shift will give report to pm nurse for cont of care.
[2020-05-08] MEDS: CEFTRIAXONE 1 G in IV D5W 50 ML IV SCH (20:21)
[2020-05-09] VITALS (45 sets, daily range): BP systolic 92–128; BP diastolic 58–89
[2020-05-09] MEDS: BLOOD SUGAR DIAGNOSTIC 1 EACH STRIP IN SCH ×5 (00:42→23:45)
[2020-05-09] MEDS: INSULIN REGULAR, HUMAN 100 UNIT/ML 3 ML VIAL SQ PRN ×5 (00:56→23:47)
[2020-05-09] MEDS: PROPOFOL 100 ML IV PRN ×4 (00:57→23:45)
[2020-05-09 05:09] LABS: BASOPHILS # (AUTO) 0.2 /CMM (0.0-0.2); BASOPHILS % (AUTO) 1.2 % (0.0-2.0); HEMATOCRIT 38 % (33-45); HEMOGLOBIN 12.4 g/dL (11.5-14.8); LYMPHOCYTES # (AUTO) 0.3 /CMM (0.8-4.8); LYMPHOCYTES % (AUTO) 2.1 % (20.0-44.0); MEAN CORPUSCULAR HGB CONC 33 g/dl (31.0-36.0); MEAN CORPUSCULAR VOLUME 88 fL (82-100); MONOCYTES # (AUTO) 0.6 /CMM (0.1-1.30); NEUTROPHILS # (AUTO) 11.7 /CMM (1.8-8.9); NEUTROPHILS % (AUTO) 91.7 % (43.0-81.0); PLATELET COUNT (AUTO) 259 /CMM (150-450); RED BLOOD CELL COUNT(AUTO) 4.36 MIL/uL (4.0-5.2); WHITE BLOOD COUNT (AUTO) 12.8 K/uL (4.3-11.0)
[2020-05-09 05:22] LABS: C-REACTIVE PROTEIN 16.9 mg/dL (0.0-0.9)
[2020-05-09 05:27] LABS: CALCIUM, SERUM 8.5 mg/dL (8.5-10.1); CREATININE 0.7 mg/dL (0.6-1.3); POTASSIUM 4.3 mmol/L (3.5-5.1)
--- NOTE | 2020-05-09 06:30 | NUR ---
ICU/OIL PIT ATTENDANT CALLED MAMMALOGIST ABOUT POSSIBLE PNEUMOTHORAX TO LEFT SIDE. GOT ORDER FOR 2D XRAY. ORDER PLACED IN COMPUTER. CHARGE NURSE MADE AWARE OF THIS ORDER.
[2020-05-09 06:39] LABS: ABG BASE EXCESS 0.6 mmol/L; ABG OXYGEN SATURATION 90.8 % (92.0-98.5); ABG PCO2 32.5 mmHg (35.0-45.0); ABG PH 7.476 (7.350-7.450); ABG PO2 57.5 mmHg (75.0-100.0); AaDO2 406.7 mmHg; COHb 0.2 % (0.5-1.5); MetHb 0.2 % (0.0-1.5); O2Hb 90.4 % (94.0-97.0); PEEP,BG 12 cm H2O; SITE, ABG Right Radial; VENT MODE, BG AC 16 450 70% +12; VT, ABG 450 mL
--- NOTE | 2020-05-09 08:00 | NUR ---
horticulture teacher received pt in bed intubated, sedated on propofol pt opens eyes by touch follows commands, noticed chest xray regarding possible pneumothorax Dr. Wolf at bedside assessing pt, ordered to have couple of 16g needles at x2 syringe 10cc at bed side orders followed, iv access patent infusing tko and propofol, gallego patent draining urine, turn and reposition in bed safety measures taken call light w/ in reach will cont to monitor.
[2020-05-09] MEDS: PANTOPRAZOLE 40 MG/PACK PACK NG SCH (08:56)
[2020-05-09] MEDS: AZITHROMYCIN 250 MG TABLET NG SCH (08:56)
[2020-05-09] MEDS: DEXAMETHASONE SOD PHOSPHATE 10 MG/ML VIAL IV SCH (08:56)
[2020-05-09] MEDS: APIXABAN 5 MG TABLET NG SCH (08:59)
[2020-05-09] MEDS: INSULIN GLARGINE, 100 UNIT/ML CARTRIDGE SQ SCH ×2 (09:53→21:26)
--- NOTE | 2020-05-09 19:30 | NUR ---
WIND INSTRUMENT REPAIRER OPENING NOTES: Rec'd pt in bed, sedated. On mechanical ventilation, tolerating settings well. No SOB or resp distress noted. SR on tele monitor. OGT in place. Right IJ PICC in place with Diprivan infusing at 25mcg/kg/min. gallego catheter in place, patent and draining urine via gravity. Safety measures in place. Will continue to monitor.
[2020-05-09] MEDS: CEFTRIAXONE 1 G in IV D5W 50 ML IV SCH (20:30)
--- NOTE | 2020-05-09 21:09 | NUR ---
Received patient intubated on AC 20 380 100% +10. On ET tube 7.5 22cm @ lip. Ambu bag at bedside. Vent plugged into red outlet. No signs of respiratory distress noted. Suctioned small amounts of thick yellow secretions. Will continue to monitor. Addendum: 05/09/20 at 2110 by JAVAN SIM RT Amended: Links added.
[2020-05-10] VITALS (32 sets, daily range): BP systolic 79–129; BP diastolic 54–77
[2020-05-10] MEDS: IV NS 0.9% 250 ML IV PRN (03:20)
[2020-05-10] MEDS: PROPOFOL 100 ML IV PRN ×4 (03:36→21:20)
[2020-05-10 03:54] LABS: BASOPHILS # (AUTO) 0.1 /CMM (0.0-0.2); BASOPHILS % (AUTO) 0.6 % (0.0-2.0); HEMATOCRIT 39 % (33-45); HEMOGLOBIN 12.7 g/dL (11.5-14.8); LYMPHOCYTES # (AUTO) 0.2 /CMM (0.8-4.8); LYMPHOCYTES % (AUTO) 1.9 % (20.0-44.0); MEAN CORPUSCULAR HGB CONC 33 g/dl (31.0-36.0); MEAN CORPUSCULAR VOLUME 88 fL (82-100); MONOCYTES # (AUTO) 0.7 /CMM (0.1-1.30); MONOCYTES % (AUTO) 5.8 % (2.0-12.0); NEUTROPHILS # (AUTO) 11.7 /CMM (1.8-8.9); NEUTROPHILS % (AUTO) 91.7 % (43.0-81.0); PLATELET COUNT (AUTO) 286 /CMM (150-450); RED BLOOD CELL COUNT(AUTO) 4.45 MIL/uL (4.0-5.2); WHITE BLOOD COUNT (AUTO) 12.7 K/uL (4.3-11.0)
[2020-05-10 04:16] LABS: CALCIUM, SERUM 8.4 mg/dL (8.5-10.1); CREATININE 0.6 mg/dL (0.6-1.3); PHOSPHORUS 3.8 mg/dL (2.5-4.9); POTASSIUM 4.3 mmol/L (3.5-5.1)
[2020-05-10] MEDS: BLOOD SUGAR DIAGNOSTIC 1 EACH STRIP IN SCH ×4 (05:53→23:52)
[2020-05-10] MEDS: INSULIN REGULAR, HUMAN 100 UNIT/ML 3 ML VIAL SQ PRN ×4 (05:54→23:59)
--- NOTE | 2020-05-10 07:01 | NUR ---
SURGICAL DRESSING MAKER CLOSING NOTES: No acute changes noted. Pt remains intubated on mechanical ventilation and sedated. SR/SB on tele monitor. Right IJ PICC patent and infusing Diprivan at 25mcg/kg/min. Quan catheter patent and draining urine via gravity. Kept clean/dry. All due meds given as ordered. Safety measures in place. Will endorse to oncoming nurse for GENARO.
--- NOTE | 2020-05-10 07:20 | NUR ---
RN INITIAL NOTES RECEIVED PT INTUBATED, ON VENT. NO RESPIRATORY DISTRESS NOTED. NO SOB NOTED. NO SIGNS OF PAIN NOTED. HOB ELEVATED. OG TUBE IN PLACE, CLAMPED. RIJ TLC IN PLACE. ON DIPRIVAN, WILL TITRATE ACCORDINGLY. TURNER IN PLACE. BLE ELEVATED. WILL MONITOR
[2020-05-10] MEDS: PANTOPRAZOLE 40 MG/PACK PACK NG SCH (08:22)
[2020-05-10] MEDS: DEXAMETHASONE SOD PHOSPHATE 10 MG/ML VIAL IV SCH (08:23)
[2020-05-10] MEDS ORDERED: ENOXAPARIN SODIUM 40 MG/0.4 ML DISP.SYRIN SQ SCH (09:00)
[2020-05-10 09:13] LABS: ABG BASE EXCESS 0.8 mmol/L; ABG OXYGEN SATURATION 88.5 % (92.0-98.5); ABG PCO2 36.4 mmHg (35.0-45.0); ABG PH 7.447 (7.350-7.450); ABG PO2 53.6 mmHg (75.0-100.0); COHb 0.4 % (0.5-1.5); MetHb 0.2 % (0.0-1.5); SITE, ABG Right Radial; VENT MODE, BG AC 16 380 +10 100%
[2020-05-10] MEDS: AZITHROMYCIN 250 MG TABLET NG SCH (10:31)
[2020-05-10] MEDS: ENOXAPARIN SODIUM 40 MG/0.4 ML DISP.SYRIN SQ SCH (17:48)
[2020-05-10] MEDS: VANCOMYCIN 1.25 GM in IV D5W 250 ML IV SCH (17:57)
[2020-05-10 18:28] LABS: BILIRUBIN,URINE NEGATIVE (NEGATIVE); COLOR,URINE RED (YELLOW); LEUKOCYTE ESTERASE ,URINE SMALL (NEGATIVE); NITRITE, URINE NEGATIVE (NEGATIVE); PH,URINE 6.5 (5.0-8.0); PROTEIN,URINE 100 mg/dl (NEGATIVE); UGLUCOSE NEGATIVE (NEGATIVE); UROBILINOGEN,URINE 0.2 EU/dL (0.2)
--- NOTE | 2020-05-10 18:40 | NUR ---
RN CLOSING NOTES NO SIGNIFICANT CHANGE NOTED. PT REMAINS INTUBATED, ON VENT. REMAINS ON DIPRIVAN. KEPT PT SEDATED. TURNER IN PLACE. KEPT CLEAN AND DRY. KEPT COMFORTABLE. REPOSITIONED WHEN ABLE DUE TO ISOLATION. WILL ENDORSE FOR CONTINUITY OF CARE.
[2020-05-10 18:50] LABS: BACTERIA,URINE Few /HPF (None Seen); RBC,URINE TOO NUMEROUS TO COUN /HPF (0-2); SQUAMOUS EPITHELIAL CELL,UR Few /HPF (None Seen); YEAST,URINE Moderate /HPF (None Seen)
--- NOTE | 2020-05-10 19:22 | NUR ---
AUTOMOTIVE FLEET SUPERVISOR OPENING NOTES: Rec'd pt intubated 7.5/22cm at the lip and sedated. Tolerating vent settings well. SR on tele monitor. OGT in place, clamped. Right IJ TLC in place w/ Diprivan infusing at 25mcg/kg/min. Quan catheter in place patent and draining urine via gravity. Safety measures in place. Will continue to monitor.
[2020-05-10] MEDS: CEFEPIME 2 GM in IV D5W 100 ML IV SCH (20:30)
[2020-05-10] MEDS: INSULIN GLARGINE, 100 UNIT/ML CARTRIDGE SQ SCH (21:19)
[2020-05-11] VITALS (53 sets, daily range): BP systolic 69–157; BP diastolic 47–92
--- NOTE | 2020-05-11 00:22 | NUR ---
MANDREL PULLER NOTE: Sputum cx collected by RT. Lab aware.
[2020-05-11] MEDS: PROPOFOL 100 ML IV PRN ×8 (00:58→22:58)
--- NOTE | 2020-05-11 00:59 | NUR ---
RT NOTE Pt rec'd orally intubated via ETT 7.5 secured @ 22cm at the lipline. Pt on [facility] vent on AC mode settings as charted. Pt sx'd for thick small amt of pale yellow secretions. Alarms are set and audible. Ambu bag bedside. Vent plugged into red outlet. Will continue to monitor closely. Addendum: 05/11/20 at 0100 by MARLIN VALLE RT Amended: Links added.
[2020-05-11] MEDS: IV NS 0.9% 250 ML IV PRN (04:41)
[2020-05-11] MEDS: CEFEPIME 2 GM in IV D5W 100 ML IV SCH ×3 (05:00→22:49)
[2020-05-11 05:09] LABS: BASOPHILS % (AUTO) 0.4 % (0.0-2.0); EOSINOPHILS % (AUTO) 1.7 % (0.0-6.0); HEMATOCRIT 40 % (33-45); HEMOGLOBIN 12.8 g/dL (11.5-14.8); LYMPHOCYTES # (AUTO) 0.5 /CMM (0.8-4.8); LYMPHOCYTES % (AUTO) 3.8 % (20.0-44.0); MEAN CORPUSCULAR HGB CONC 32 g/dl (31.0-36.0); MEAN CORPUSCULAR VOLUME 89 fL (82-100); MONOCYTES # (AUTO) 0.3 /CMM (0.1-1.30); MONOCYTES % (AUTO) 2.6 % (2.0-12.0); NEUTROPHILS # (AUTO) 11.5 /CMM (1.8-8.9); NEUTROPHILS % (AUTO) 91.5 % (43.0-81.0); PLATELET COUNT (AUTO) 285 /CMM (150-450); RED BLOOD CELL COUNT(AUTO) 4.51 MIL/uL (4.0-5.2); WHITE BLOOD COUNT (AUTO) 12.6 K/uL (4.3-11.0)
[2020-05-11 05:24] LABS: CALCIUM, SERUM 8.4 mg/dL (8.5-10.1); CREATININE 0.6 mg/dL (0.6-1.3); PHOSPHORUS 3.7 mg/dL (2.5-4.9); POTASSIUM 3.9 mmol/L (3.5-5.1)
[2020-05-11] MEDS: BLOOD SUGAR DIAGNOSTIC 1 EACH STRIP IN SCH ×4 (05:38→23:24)
[2020-05-11] MEDS: INSULIN REGULAR, HUMAN 100 UNIT/ML 3 ML VIAL SQ PRN ×4 (05:39→23:22)
[2020-05-11] MEDS: VANCOMYCIN 1.25 GM in IV D5W 250 ML IV SCH ×2 (06:03→18:05)
--- NOTE | 2020-05-11 06:30 | NUR ---
DIESEL LOCOMOTIVE FIRER NOTE: 0553: Rec'd critical from lab, lactic acid: 2.611: Paged waste transportation technician Mer Estevez. Asked if pt had ABG order for today, informed her yes she does. Stated ok, and NNO.
--- NOTE | 2020-05-11 07:02 | NUR ---
LICENSING ANALYST CLOSING NOTES: No significant changes noted throughout shift. Remains intubated, on mechanical ventilation and sedated. Diprivan 25mcg/kg infusing through [place] PICC. Quan catheter in place draining urine via gravity. All due meds given as ordered. Safety measures in place. Will endorse to oncoming nurse for GENARO.
[2020-05-11] MEDS: DEXAMETHASONE SOD PHOSPHATE 10 MG/ML VIAL IV SCH (08:23)
[2020-05-11] MEDS: PANTOPRAZOLE 40 MG/PACK PACK NG SCH (08:23)
[2020-05-11 09:31] LABS: BILIRUBIN,DIRECT 0.2 mg/dL (0.0-0.2); BILIRUBIN,TOTAL 0.4 mg/dL (0.2-1.0)
[2020-05-11] MEDS: ENOXAPARIN SODIUM 40 MG/0.4 ML DISP.SYRIN SQ SCH ×2 (12:29→22:50)
[2020-05-11 12:39] LABS: ABG BASE EXCESS -2.4 mmol/L; ABG OXYGEN SATURATION 88.1 % (92.0-98.5); ABG PH 7.417 (7.350-7.450); ABG PO2 55.4 mmHg (75.0-100.0); AaDO2 623.6 mmHg; COHb 0.4 % (0.5-1.5); MetHb 0.2 % (0.0-1.5); O2Hb 87.6 % (94.0-97.0); SITE, ABG Right Radial; VENT MODE, BG ac 16 380 100% +12
[2020-05-11] MEDS: NOREPINEPHRINE 8 MG in IV NS 0.9% 242 ML IV PRN (13:43)
[2020-05-11] MEDS: MIDAZOLAM HCL 100 MG in IV NS 0.9% 80 ML IV PRN (17:51)
[2020-05-11] MEDS: FENTANYL CITRAT IV 2,500 MCG in IV NS 0.9% 200 ML IV PRN (18:04)
--- NOTE | 2020-05-11 19:15 | NUR ---
RN CLOSING NOTES NO SIGNIFICANT CHANGE NOTED. PT REMAINS INTUBATED, VENT SETTINGS. TITRATING DIPRIVAN, STARTED ON VERSED AND FENTANYL DRIP. TURNER IN PLACE. KEPT CLEAN AND DRY. KEPT COMFORTABLE. REPOSITIONED WHEN ABLE DUE TO ISOLATION. WILL ENDORSE FOR CONTINUITY OF CARE.
--- NOTE | 2020-05-11 19:15 | NUR ---
RECEIVED PATIENT INTUBATED AND SEDATED ON DIPRIVAN, VERSED, AND FENTANYL. PATIENT SATURATING AT 94% CURRENTLY. WILL CONTINUE TO MONITOR.
--- NOTE | 2020-05-11 22:00 | NUR ---
PATIENT DESATURATING TO 90%. PATIENT IS ALREADY ON 100% FI02. REPOSITIONING DONE, BUT PATIENT CONTINUES TO DESATURATE. MILD RESPIRATORY DISTRESS. RT AT BEDSIDE.
[2020-05-11] MEDS: INSULIN GLARGINE, 100 UNIT/ML CARTRIDGE SQ SCH (23:23)
--- NOTE | 2020-05-11 23:30 | NUR ---
CREPITUS FELT ALONG PATIENT CHEST. SATURATION IS AT 96% WITH FIO2 @ 100% AND PEEP OF 14. FORMAL WEAR RENTAL CLERK MD NOTIFIED AND UPDATED. ORDER FOR CHEST TUBE INSERTION GIVEN. STAT CHEST X-RAY BEING DONE.
[2020-05-12] VITALS (89 sets, daily range): BP systolic 63–183; BP diastolic 42–108
--- NOTE | 2020-05-12 | NUR ---
MD FROTHING MACHINE OPERATOR NOTIFIIED ABOUT PATIENTS CONDITION. ER MD WAS CALLED FOR POSSIBLE EVALUATION FOR CHEST TUBE INSERTION ER MD REFUSED TO ASSESS OR INSERT CHEST TUBE IF NEEDED. FROTHING MACHINE OPERATOR MD NOTIFIED. NO ORDERS GIVEN FOR NOW.
--- NOTE | 2020-05-12 01:58 | NUR ---
PATIENT SATURATING AT 75%. NO IMPROVEMENT. BP AND HR WNL.
[2020-05-12 04:12] LABS: BASOPHILS # (AUTO) 0.1 /CMM (0.0-0.2); BASOPHILS % (AUTO) 0.4 % (0.0-2.0); HEMATOCRIT 37 % (33-45); HEMOGLOBIN 11.9 g/dL (11.5-14.8); LYMPHOCYTES # (AUTO) 0.3 /CMM (0.8-4.8); LYMPHOCYTES % (AUTO) 1.8 % (20.0-44.0); MEAN CORPUSCULAR HGB CONC 32 g/dl (31.0-36.0); MEAN CORPUSCULAR VOLUME 88 fL (82-100); MONOCYTES # (AUTO) 0.8 /CMM (0.1-1.30); MONOCYTES % (AUTO) 5.5 % (2.0-12.0); NEUTROPHILS # (AUTO) 13.5 /CMM (1.8-8.9); NEUTROPHILS % (AUTO) 92.3 % (43.0-81.0); PLATELET COUNT (AUTO) 260 /CMM (150-450); RED BLOOD CELL COUNT(AUTO) 4.18 MIL/uL (4.0-5.2); WHITE BLOOD COUNT (AUTO) 14.7 K/uL (4.3-11.0)
[2020-05-12 04:38] LABS: CALCIUM, SERUM 8.3 mg/dL (8.5-10.1); CREATININE 0.5 mg/dL (0.6-1.3); MAGNESIUM 2.1 mg/dL (1.8-2.4); PHOSPHORUS 3.9 mg/dL (2.5-4.9); POTASSIUM 4.4 mmol/L (3.5-5.1)
[2020-05-12] MEDS: FENTANYL CITRAT IV 2,500 MCG in IV NS 0.9% 200 ML IV PRN ×3 (05:06→23:40)
[2020-05-12] MEDS: MIDAZOLAM HCL 100 MG in IV NS 0.9% 80 ML IV PRN ×3 (05:10→23:43)
[2020-05-12] MEDS: CEFEPIME 2 GM in IV D5W 100 ML IV SCH ×3 (05:19→21:49)
[2020-05-12] MEDS: INSULIN REGULAR, HUMAN 100 UNIT/ML 3 ML VIAL SQ PRN ×4 (05:58→23:25)
[2020-05-12] MEDS: BLOOD SUGAR DIAGNOSTIC 1 EACH STRIP IN SCH ×4 (06:14→23:25)
[2020-05-12] MEDS: VANCOMYCIN 1.25 GM in IV D5W 250 ML IV SCH ×2 (06:31→18:35)
[2020-05-12] MEDS: PANTOPRAZOLE 40 MG/PACK PACK NG SCH (08:25)
[2020-05-12] MEDS: DEXAMETHASONE SOD PHOSPHATE 10 MG/ML VIAL IV SCH (08:25)
[2020-05-12 08:44] LABS: ABG BASE EXCESS -2.2 mmol/L; ABG OXYGEN SATURATION 73.5 % (92.0-98.5); ABG PCO2 53.2 mmHg (35.0-45.0); ABG PO2 42.5 mmHg (75.0-100.0); AaDO2 617.3 mmHg; COHb 0.8 % (0.5-1.5); MetHb 0.2 % (0.0-1.5); O2Hb 72.8 % (94.0-97.0); PEEP,BG 14 cm H2O; SITE, ABG Left Radial; VT, ABG 380 mL
[2020-05-12] MEDS: ENOXAPARIN SODIUM 40 MG/0.4 ML DISP.SYRIN SQ SCH ×2 (09:22→21:49)
[2020-05-12] MEDS ORDERED: ATROPINE SULFATE 1 MG/10 ML DISP.SYRIN IV ONE (11:00)
[2020-05-12] MEDS: NOREPINEPHRINE 8 MG in IV NS 0.9% 242 ML IV PRN (11:17)
--- NOTE | 2020-05-12 11:20 | NUR ---
RT PT CODED
--- NOTE | 2020-05-12 12:00 | NUR ---
RN NOTES PT CODED AT 1130. ENDED AT 1132. PLEASE SEE CODE BLUE SHEET
[2020-05-12 12:18] LABS: ABG BASE EXCESS -6.8 mmol/L; ABG OXYGEN SATURATION 88.1 % (92.0-98.5); ABG PCO2 39.7 mmHg (35.0-45.0); ABG PH 7.301 (7.350-7.450); ABG PO2 57.6 mmHg (75.0-100.0); AaDO2 615.7 mmHg; COHb 0.9 % (0.5-1.5); MetHb 0.2 % (0.0-1.5); O2Hb 87.1 % (94.0-97.0); SITE, ABG Right Radial; VENT MODE, BG ac 16 450 +16 100%
--- NOTE | 2020-05-12 18:48 | NUR ---
RN CLOSING NOTES PT REMAINS INTUBATED, VENT SETTINGS ADJUSTED. ON LEVOPHED, VERSED AND FENTANYL DRIP. TURNER IN PLACE. KEPT CLEAN AND DRY. KEPT COMFORTABLE. REPOSITIONED WHEN ABLE DUE TO ISOLATION. WILL ENDORSE FOR CONTINUITY OF CARE.
[2020-05-12] MEDS ORDERED: EPINEPHRINE (1:10,000) SYRINGE 1 MG/10 ML DISP.SYRIN ONE (22:23)
[2020-05-12] MEDS ORDERED: EPINEPHRINE (1:10,000) SYRINGE 1 MG/10 ML DISP.SYRIN IV STA (22:25)
--- NOTE | 2020-05-12 22:25 | NUR ---
PATIENTS HR DROPPED TO 33 BP AT 74/45. PULSE PALPATED, 1MG OF EPI GIVEN. DR DIE ASSEMBLER MADE AWARE. HR AFTER EPI AT 94. WILL MONITOR.
--- NOTE | 2020-05-12 23:15 | NUR ---
FAMILY CALLED AND MADE AWARE OF PATIENTS CONDITION. FAMILY WANTS PATIENT FULL CODE.
[2020-05-12] MEDS: INSULIN GLARGINE, 100 UNIT/ML CARTRIDGE SQ SCH (23:24)
--- NOTE | 2020-05-12 23:26 | NUR ---
PATIENTS HR AT 70 DESATURATING AT 77%. WITH BP AT 63/45
[2020-05-13] VITALS (93 sets, daily range): BP systolic 86–123; BP diastolic 46–84
--- NOTE | 2020-05-13 01:37 | NUR ---
SPOKE TO DAUGHTER OF PATIENT WHO IS NEXT OF KIN AND WITH HER APPROVAL SPOKE TO SISTER OF PATIENT DESMOND JD UPDATED HER ON PATIENTS STATUS. FAMILY WANTS PATIENT FULL CODE. CALL SISTER WITH ANY UPDATE .
--- NOTE | 2020-05-13 04:16 | NUR ---
RT NOTE Pt rec'd orally intubated via ETT 7.5 secured @ 22cm at the lipline. Pt on [facility] vent on AC mode settings as charted. Pt sx'd for thick SCANT amt of clear secretions. Alarms are set and audible. Ambu bag bedside. Vent plugged intO red outlet. Will continue to monitor closely. Addendum: 05/13/20 at 0417 by MARLIN VALLE RT Amended: Links added.
[2020-05-13 04:42] LABS: BASOPHILS # (AUTO) 0.1 /CMM (0.0-0.2); BASOPHILS % (AUTO) 0.4 % (0.0-2.0); HEMATOCRIT 41 % (33-45); HEMOGLOBIN 12.8 g/dL (11.5-14.8); LYMPHOCYTES # (AUTO) 0.4 /CMM (0.8-4.8); LYMPHOCYTES % (AUTO) 1.6 % (20.0-44.0); MEAN CORPUSCULAR HGB CONC 31 g/dl (31.0-36.0); MEAN CORPUSCULAR VOLUME 89 fL (82-100); MONOCYTES # (AUTO) 1.6 /CMM (0.1-1.30); MONOCYTES % (AUTO) 6.6 % (2.0-12.0); NEUTROPHILS # (AUTO) 21.9 /CMM (1.8-8.9); NEUTROPHILS % (AUTO) 91.4 % (43.0-81.0); PLATELET COUNT (AUTO) 353 /CMM (150-450); RED BLOOD CELL COUNT(AUTO) 4.63 MIL/uL (4.0-5.2)
[2020-05-13 05:04] LABS: CALCIUM, SERUM 8.7 mg/dL (8.5-10.1); CREATININE 0.6 mg/dL (0.6-1.3); MAGNESIUM 2.3 mg/dL (1.8-2.4); PHOSPHORUS 3.5 mg/dL (2.5-4.9); POTASSIUM 4.4 mmol/L (3.5-5.1)
[2020-05-13] MEDS: CEFEPIME 2 GM in IV D5W 100 ML IV SCH ×3 (05:40→21:02)
[2020-05-13] MEDS: BLOOD SUGAR DIAGNOSTIC 1 EACH STRIP IN SCH ×4 (05:41→23:36)
[2020-05-13] MEDS: INSULIN REGULAR, HUMAN 100 UNIT/ML 3 ML VIAL SQ PRN ×2 (05:47→23:38)
[2020-05-13 06:24] LABS: ABG BASE EXCESS -6.9 mmol/L; ABG OXYGEN SATURATION 88.3 % (92.0-98.5); ABG PCO2 42.6 mmHg (35.0-45.0); ABG PH 7.279 (7.350-7.450); ABG PO2 57.8 mmHg (75.0-100.0); AaDO2 612.6 mmHg; COHb 0.7 % (0.5-1.5); MetHb 0.1 % (0.0-1.5); O2Hb 87.6 % (94.0-97.0); SITE, ABG Right Radial; VENT MODE, BG AC 16 450 100% +16
--- NOTE | 2020-05-13 07:08 | NUR ---
CONVALESCENT PLASMA COMPLETE. NO SIGN OF ANY ADVERSE REACTIONS.
--- NOTE | 2020-05-13 08:00 | NUR ---
RN NOTES RECEIVED PATIENT INTUBATED, VENT SETTINGS ADJUSTED, SUCTIONED, ON LEVOPHED 0.06 MCG, VERSED 7MCG, AND AND FENTANYL DRIP 1.[address] KEPT CLEAN AND DRY. KEPT COMFORTABLE. NGT CLAMPED, ADMINISTERED SCHEDULED MEDICATION, ASSIST TURN AND REPOSTION Q2 HR, REPOSITIONED Q2 HR. WILL MONITORING.
[2020-05-13] MEDS ORDERED: ATROPINE SULFATE 1 MG/10 ML DISP.SYRIN IV ONE (09:17)
[2020-05-13] MEDS: DEXAMETHASONE SOD PHOSPHATE 10 MG/ML VIAL IV SCH (09:48)
[2020-05-13] MEDS: PANTOPRAZOLE 40 MG/PACK PACK NG SCH (09:49)
[2020-05-13] MEDS: ENOXAPARIN SODIUM 40 MG/0.4 ML DISP.SYRIN SQ SCH ×2 (09:54→21:16)
[2020-05-13] MEDS: VANCOMYCIN 1.25 GM in IV D5W 250 ML IV SCH ×2 (10:01→18:59)
[2020-05-13] MEDS: FENTANYL CITRAT IV 2,500 MCG in IV NS 0.9% 200 ML IV PRN ×3 (14:09→22:23)
[2020-05-13] MEDS: MIDAZOLAM HCL 100 MG in IV NS 0.9% 80 ML IV PRN ×2 (14:15→22:24)
[2020-05-13] MEDS: NOREPINEPHRINE 8 MG in IV NS 0.9% 242 ML IV PRN (14:50)
--- NOTE | 2020-05-13 18:30 | NUR ---
RN NOTES PT REMAINS INTUBATED, VENT SETTINGS TOLERATED WELL, ON LEVOPHED, VERSED AND FENTANYL DRIP. NG TUBE FLASHED 250 ML OF WATER, TURNER IN PLACE. KEPT COMFORTABLE. PM CARE DONE. WILL ENDORSE FOR CONTINUITY OF CARE.
--- NOTE | 2020-05-13 19:40 | NUR ---
RN NOTES RECEIVED PATIENT SEDATED WITH ETT 7 SECURED AT 23CM AT LIPLINE WITH VENT SETTING AC20 TV 400 FIO2 60% PEEP 8. NSR ON TELE MONITOR WITH OGT CLAMPED. NPO IV SITE ON RIJ TLC AND LW AND RAC WITH LEVOPHED @ 0.06 MCG/KG/MIN, VERSED @ 7 MG/HR, FENTANYL @ 13 ML/HR TITRATED PROTOCOL ORDER. PATIENT ALSO HAVE TURNER CATH DRAINED VIA GRAVITY. WILL TURNED AND REPOSITIONED Q2H AND PRN PT. COMFORTABLE. WILL CONTINUE TO MONITOR.
--- NOTE | 2020-05-13 19:50 | NUR ---
RN NOTES CORRECTION VENT SETTING: AC 16, TV 450 FIO2 100% PEEP 16 TOLERATED WELL.
[2020-05-13] MEDS: INSULIN GLARGINE, 100 UNIT/ML CARTRIDGE SQ SCH (22:21)
[2020-05-14] VITALS (92 sets, daily range): BP systolic 87–139; BP diastolic 51–89
[2020-05-14] MEDS: CEFEPIME 2 GM in IV D5W 100 ML IV SCH ×3 (04:34→21:13)
[2020-05-14 06:04] LABS: BASOPHILS # (AUTO) 0.1 /CMM (0.0-0.2); BASOPHILS % (AUTO) 0.5 % (0.0-2.0); HEMATOCRIT 38 % (33-45); HEMOGLOBIN 12.1 g/dL (11.5-14.8); LYMPHOCYTES # (AUTO) 0.3 /CMM (0.8-4.8); LYMPHOCYTES % (AUTO) 1.9 % (20.0-44.0); MEAN CORPUSCULAR HGB CONC 32 g/dl (31.0-36.0); MEAN CORPUSCULAR VOLUME 89 fL (82-100); MONOCYTES # (AUTO) 1.5 /CMM (0.1-1.30); MONOCYTES % (AUTO) 8.2 % (2.0-12.0); NEUTROPHILS # (AUTO) 15.9 /CMM (1.8-8.9); NEUTROPHILS % (AUTO) 89.4 % (43.0-81.0); PLATELET COUNT (AUTO) 320 /CMM (150-450); RED BLOOD CELL COUNT(AUTO) 4.28 MIL/uL (4.0-5.2); WHITE BLOOD COUNT (AUTO) 17.8 K/uL (4.3-11.0)
[2020-05-14 06:12] LABS: CALCIUM, SERUM 8.6 mg/dL (8.5-10.1); CREATININE 0.5 mg/dL (0.6-1.3); MAGNESIUM 2.3 mg/dL (1.8-2.4); PHOSPHORUS 2.5 mg/dL (2.5-4.9); POTASSIUM 4.1 mmol/L (3.5-5.1)
[2020-05-14] MEDS: BLOOD SUGAR DIAGNOSTIC 1 EACH STRIP IN SCH ×3 (06:45→18:01)
[2020-05-14] MEDS: VANCOMYCIN 1.25 GM in IV D5W 250 ML IV SCH (06:45)
[2020-05-14] MEDS: INSULIN REGULAR, HUMAN 100 UNIT/ML 3 ML VIAL SQ PRN ×4 (07:09→23:59)
--- NOTE | 2020-05-14 07:30 | NUR ---
RN NOTES PATIENT REMAINED STABLE WITH ETT AND VENT SETTING TOLERATED. WELL. AFEBILE. CONTINUE WITH VERSED, FENTANYL AND LEVOPHED TITRATED PROTOCOL ORDERED. BEDBATH TOLERATED WELL. ISOLATION PRECAUTION FOR COVID. STRICTLY OBSERVED AND ALWAYS MET. KEPT PT CLEAN AND DRY. CONTINUE WITH POC.
[2020-05-14] MEDS: PANTOPRAZOLE 40 MG/PACK PACK NG SCH (08:44)
[2020-05-14] MEDS: DEXAMETHASONE SOD PHOSPHATE 10 MG/ML VIAL IV SCH (08:44)
[2020-05-14] MEDS: ENOXAPARIN SODIUM 40 MG/0.4 ML DISP.SYRIN SQ SCH ×2 (08:45→21:15)
[2020-05-14] MEDS: NOREPINEPHRINE 8 MG in IV NS 0.9% 242 ML IV PRN ×2 (09:53→22:44)
[2020-05-14] MEDS: MIDAZOLAM HCL 100 MG in IV NS 0.9% 80 ML IV PRN ×2 (10:01→22:04)
[2020-05-14] MEDS: FENTANYL CITRAT IV 2,500 MCG in IV NS 0.9% 200 ML IV PRN ×2 (10:01→22:08)
--- NOTE | 2020-05-14 19:15 | NUR ---
RN NOTES PATIENT REMAINED STABLE WITH ETT AND VENT SETTING TOLERATED WELL. AFEBILE. CONTINUE WITH VERSED, FENTANYL AND LEVOPHED TITRATED PROTOCOL ORDERED. BEDBATH TOLERATED WELL. ISOLATION PRECAUTION FOR COVID. SAFETY MEASURES IN PLACE, WILL ENDORSE TO BODY SHOP FLOORPERSON NURSE FOR GENARO.
--- NOTE | 2020-05-14 19:39 | NUR ---
PT REC'D ORALLY INTUBATED VIA ETT 7.5 SECURED @ 22 CM LIP LINE ON [facility] VENT WITH THE SETTINGS OF AC 16, 450, 100%,PEEP 16. NO RESPIRATORY DISTRESS NOTED AT THIS TIME. SX DONE . ALARMS ARE SET AND AUDIBLE. VENT PLUGGED INTO RED OUTLET. AMBU BAG @ BEDSIDE. WILL CONTINUE TO MONITOR Addendum: 05/15/20 at 0215 by BOBBY BILLY RT Amended: Links added.
[2020-05-15] VITALS (80 sets, daily range): BP systolic 68–128; BP diastolic 1–80
[2020-05-15] MEDS: BLOOD SUGAR DIAGNOSTIC 1 EACH STRIP IN SCH ×5 (00:03→23:55)
[2020-05-15] MEDS: CEFEPIME 2 GM in IV D5W 100 ML IV SCH ×3 (04:33→21:51)
[2020-05-15 05:06] LABS: BASOPHILS # (AUTO) 0.1 /CMM (0.0-0.2); BASOPHILS % (AUTO) 0.7 % (0.0-2.0); HEMATOCRIT 36 % (33-45); HEMOGLOBIN 11.4 g/dL (11.5-14.8); LYMPHOCYTES # (AUTO) 0.4 /CMM (0.8-4.8); LYMPHOCYTES % (AUTO) 2.3 % (20.0-44.0); MEAN CORPUSCULAR HGB CONC 32 g/dl (31.0-36.0); MEAN CORPUSCULAR VOLUME 90 fL (82-100); MONOCYTES # (AUTO) 1.4 /CMM (0.1-1.30); NEUTROPHILS # (AUTO) 13.9 /CMM (1.8-8.9); PLATELET COUNT (AUTO) 265 /CMM (150-450); RED BLOOD CELL COUNT(AUTO) 3.97 MIL/uL (4.0-5.2); WHITE BLOOD COUNT (AUTO) 15.9 K/uL (4.3-11.0)
[2020-05-15 05:36] LABS: CALCIUM, SERUM 8.3 mg/dL (8.5-10.1); CREATININE 0.5 mg/dL (0.6-1.3); MAGNESIUM 2.3 mg/dL (1.8-2.4); POTASSIUM 4.1 mmol/L (3.5-5.1)
[2020-05-15] MEDS: INSULIN REGULAR, HUMAN 100 UNIT/ML 3 ML VIAL SQ PRN ×3 (06:03→22:42)
[2020-05-15 06:27] LABS: BAND % (MANUAL) 2 % (0.0-5.0); LYMPHOCYTES % (MANUAL) 3 % (16-48); METAMYELOCYTES % 2 % (0-0); MONOCYTES % (MANUAL) 4 % (0-11.0); MYELOCYTES % 1 % (0-0); NEUTROPHILS % (MANUAL) 88 (42-76)
--- NOTE | 2020-05-15 06:30 | NUR ---
TREE WARDEN: NO SIGNIFICANT GENARO DURING THE SHIFT. ABLE TO TITRATE LEVOPHED AT 0.02MCG/KG/MIN. CONTINUE ON VERSED AND FENTANYL DRIPS FOR SEDATION. UNABLE TO REPOSITION Q2H PT DESATURATES EASILY. WILL CONTINUE TO MONITOR.
--- NOTE | 2020-05-15 08:00 | NUR ---
research agricultural engineer received pt in bed sedated on versed and fentanyl intubated settins and tube placement noted, og tube clamped positive placement checked, iv access RIJ patent picc line infusing meds, held levophed to challenge pt to maintain sbp, turn and reposition in bed, noticed pt r side of neck full of air crepitus preset chest and neck notified Dr. Faith high school teacher stated he is aware and no new orders but to monitor. turn and reposition in bed safety measures taken call light w/ in reach will cont to monitor. BOOM MAN ration 3 pt to 1RN.
[2020-05-15] MEDS: PANTOPRAZOLE 40 MG/PACK PACK NG SCH (08:21)
[2020-05-15] MEDS: ENOXAPARIN SODIUM 40 MG/0.4 ML DISP.SYRIN SQ SCH ×2 (08:45→21:49)
[2020-05-15 09:47] LABS: ABG BASE EXCESS 0.8 mmol/L; ABG OXYGEN SATURATION 93.6 % (92.0-98.5); ABG PCO2 47.6 mmHg (35.0-45.0); ABG PH 7.366 (7.350-7.450); ABG PO2 66.6 mmHg (75.0-100.0); AaDO2 490.1 mmHg; MetHb 0.3 % (0.0-1.5); O2Hb 92.4 % (94.0-97.0); PEEP,BG 16 cm H2O; SITE, ABG Right Radial; VT, ABG 450 mL
--- NOTE | 2020-05-15 09:54 | NUR ---
FOUND ON 85% FIO2 Addendum: 05/15/20 at 7354 by NELLY DERAS RT Amended: Links added.
--- NOTE | 2020-05-15 09:56 | NUR ---
VENT CHANGES BELOW PER DR. HERNANDEZ: FREQ. 20 BPM VT 400 ML Addendum: 05/15/20 at 0957 by NELLY DERAS RT Amended: Links added.
[2020-05-15] MEDS: MIDAZOLAM HCL 100 MG in IV NS 0.9% 80 ML IV PRN (13:02)
[2020-05-15] MEDS: NOREPINEPHRINE 8 MG in IV NS 0.9% 242 ML IV PRN (18:28)
[2020-05-15] MEDS: INSULIN GLARGINE, 100 UNIT/ML CARTRIDGE SQ SCH ×2 (22:44)
[2020-05-16] VITALS (87 sets, daily range): BP systolic 61–126; BP diastolic 23–93
[2020-05-16 04:46] LABS: CALCIUM, SERUM 8.1 mg/dL (8.5-10.1); CREATININE 0.4 mg/dL (0.6-1.3); POTASSIUM 3.4 mmol/L (3.5-5.1)
[2020-05-16] MEDS: CEFEPIME 2 GM in IV D5W 100 ML IV SCH ×3 (06:14→22:54)
[2020-05-16] MEDS: BLOOD SUGAR DIAGNOSTIC 1 EACH STRIP IN SCH ×3 (06:15→19:01)
[2020-05-16] MEDS: FENTANYL CITRAT IV 2,500 MCG in IV NS 0.9% 200 ML IV PRN (08:53)
[2020-05-16] MEDS: MIDAZOLAM HCL 100 MG in IV NS 0.9% 80 ML IV PRN (09:35)
[2020-05-16] MEDS: PANTOPRAZOLE 40 MG/PACK PACK NG SCH (10:20)
[2020-05-16] MEDS: NOREPINEPHRINE 8 MG in IV NS 0.9% 242 ML IV PRN (10:33)
[2020-05-16 11:17] LABS: ABG BASE EXCESS 5.4 mmol/L; ABG OXYGEN SATURATION 87.7 % (92.0-98.5); ABG PCO2 54.6 mmHg (35.0-45.0); ABG PH 7.383 (7.350-7.450); ABG PO2 51.2 mmHg (75.0-100.0); AaDO2 607.2 mmHg; COHb 0.5 % (0.5-1.5); MetHb 0.2 % (0.0-1.5); O2Hb 87.1 % (94.0-97.0); SITE, ABG Left Radial; VENT MODE, BG AC 20 400 +16 100%
[2020-05-16] MEDS: ENOXAPARIN SODIUM 40 MG/0.4 ML DISP.SYRIN SQ SCH ×2 (11:24→22:54)
[2020-05-16] MEDS: POTASSIUM CL. PREMIX PERIPHER. 50 ML IV SCH ×4 (11:24→15:48)
[2020-05-16] MEDS: INSULIN REGULAR, HUMAN 100 UNIT/ML 3 ML VIAL SQ PRN (19:01)
[2020-05-17] VITALS (84 sets, daily range): BP systolic 55–131; BP diastolic 31–82
--- NOTE | 2020-05-17 | NUR ---
Placed new NG tube in the right nare with positive placement with auscultation by me and another RN. tripped over IV line and central line was removed. Site is clean dry and without hematoma noted. Placed new IV in the right hand and left AC. Notified transportation department supervisor and requested another central line placement as soon as possible.
[2020-05-17] MEDS: INSULIN GLARGINE, 100 UNIT/ML CARTRIDGE SQ SCH ×2 (01:00→21:53)
[2020-05-17] MEDS: INSULIN REGULAR, HUMAN 100 UNIT/ML 3 ML VIAL SQ PRN ×3 (01:00→23:40)
[2020-05-17] MEDS: BLOOD SUGAR DIAGNOSTIC 1 EACH STRIP IN SCH ×5 (01:00→23:40)
[2020-05-17] MEDS: FENTANYL CITRAT IV 2,500 MCG in IV NS 0.9% 200 ML IV PRN ×4 (01:39→22:49)
[2020-05-17] MEDS: MIDAZOLAM HCL 100 MG in IV NS 0.9% 80 ML IV PRN ×3 (01:42→22:01)
[2020-05-17 04:56] LABS: BASOPHILS # (AUTO) 0.2 /CMM (0.0-0.2); EOSINOPHILS % (AUTO) 0.1 % (0.0-6.0); HEMATOCRIT 41 % (33-45); HEMOGLOBIN 13.1 g/dL (11.5-14.8); LYMPHOCYTES % (AUTO) 6.5 % (20.0-44.0); MEAN CORPUSCULAR HGB CONC 32 g/dl (31.0-36.0); MEAN CORPUSCULAR VOLUME 90 fL (82-100); MONOCYTES # (AUTO) 0.7 /CMM (0.1-1.30); MONOCYTES % (AUTO) 4.9 % (2.0-12.0); NEUTROPHILS # (AUTO) 12.9 /CMM (1.8-8.9); NEUTROPHILS % (AUTO) 87.5 % (43.0-81.0); PLATELET COUNT (AUTO) 196 /CMM (150-450); RED BLOOD CELL COUNT(AUTO) 4.58 MIL/uL (4.0-5.2); WHITE BLOOD COUNT (AUTO) 14.8 K/uL (4.3-11.0)
[2020-05-17 05:06] LABS: CALCIUM, SERUM 8.4 mg/dL (8.5-10.1); CREATININE 0.5 mg/dL (0.6-1.3); MAGNESIUM 2.4 mg/dL (1.8-2.4); PHOSPHORUS 2.8 mg/dL (2.5-4.9); POTASSIUM 4.7 mmol/L (3.5-5.1)
[2020-05-17] MEDS: CEFEPIME 2 GM in IV D5W 100 ML IV SCH ×3 (06:04→20:06)
[2020-05-17 08:00] LABS: ABG BASE EXCESS 2.4 mmol/L; ABG OXYGEN SATURATION 90.4 % (92.0-98.5); ABG PCO2 46.6 mmHg (35.0-45.0); ABG PH 7.394 (7.350-7.450); ABG PO2 57.7 mmHg (75.0-100.0); AaDO2 608.7 mmHg; COHb 0.8 % (0.5-1.5); MetHb 0.1 % (0.0-1.5); O2Hb 89.6 % (94.0-97.0); PEEP,BG 16 cm H2O; SITE, ABG Right Radial; VT, ABG 400 mL
[2020-05-17] MEDS: ENOXAPARIN SODIUM 40 MG/0.4 ML DISP.SYRIN SQ SCH ×2 (10:35→20:15)
[2020-05-17] MEDS: PANTOPRAZOLE 40 MG/PACK PACK NG SCH (10:35)
[2020-05-17] MEDS: NOREPINEPHRINE 8 MG in IV NS 0.9% 242 ML IV PRN (13:26)
--- NOTE | 2020-05-17 18:00 | NUR ---
LARGE SWELLING AND CREPITUS NOTED ON PATIENTS RIGHT NECK AND UPPER CHEST SUDDENLY. STAT CHEST XRAY ORDERED. DR. CHAVES IN NURSES STATION NOTIFIED.
--- NOTE | 2020-05-17 18:30 | NUR ---
DR. CHAVES LOOKED AT XRAY ON MACHINE, STATED THERE IS NO PNEUMO AND THIS IS NOT A RESULT OF THE NEW PICC LINE INSERTION. PER DR. CHAVES NO INTERVENTION TO DO AT THIS TIME. FOLLOW UP CHEST XRAY ORDERED FOR Augustin RICO.
--- NOTE | 2020-05-17 19:30 | NUR ---
RN OPENING NOTE RECEIVED PATIENT IN BED SEDATED, ORALLY INTUBATED,ON RIGHT NG TUBE,ON MECHANICAL VENT SETTING TRACH .10/16 AC 16 TV400 FIO02:100% PEEP 16 O2:97%, NO FEEDING TUBE ORDER YET.CHECKED PLACEMENT IN PLACE,NO RESIDUAL,IV SITE IS ON LEFT UPPER ARM PICC LINE PATENT INTACT,ON MIDAZOLAM AND FENTANYL DRIP,FOR SEDATION,ON TURNER CATHETER IN PLACE URINE DRAINING YELLOW AND CLEAR,SAFETY MEASURE IMPLEMENT CONTINUE TO MONITOR
--- NOTE | 2020-05-17 22:03 | NUR ---
RN NOTE LANTUS AT 22:00 14 UNIT HOLD MD ORDERED CONTINUE TO MONITOR
--- NOTE | 2020-05-17 23:41 | NUR ---
RN NOTE BLOOD SUGAR CHECKED IS 113 NO INSULIN PER SLIDING SCALE NEEDED,CONTINUE TO MONITOR
[2020-05-18] VITALS (59 sets, daily range): BP systolic 82–125; BP diastolic 55–96
[2020-05-18] MEDS: NOREPINEPHRINE 8 MG in IV NS 0.9% 242 ML IV PRN ×2 (00:31→11:44)
[2020-05-18] MEDS: CEFEPIME 2 GM in IV D5W 100 ML IV SCH ×3 (04:02→21:14)
[2020-05-18 04:54] LABS: BASOPHILS # (AUTO) 0.1 /CMM (0.0-0.2); BASOPHILS % (AUTO) 0.8 % (0.0-2.0); EOSINOPHILS % (AUTO) 1.2 % (0.0-6.0); HEMATOCRIT 38 % (33-45); HEMOGLOBIN 12.2 g/dL (11.5-14.8); LYMPHOCYTES # (AUTO) 0.9 /CMM (0.8-4.8); LYMPHOCYTES % (AUTO) 6.8 % (20.0-44.0); MEAN CORPUSCULAR HGB CONC 32 g/dl (31.0-36.0); MEAN CORPUSCULAR VOLUME 90 fL (82-100); MONOCYTES # (AUTO) 0.8 /CMM (0.1-1.30); MONOCYTES % (AUTO) 6.3 % (2.0-12.0); NEUTROPHILS # (AUTO) 11.1 /CMM (1.8-8.9); NEUTROPHILS % (AUTO) 84.9 % (43.0-81.0); PLATELET COUNT (AUTO) 202 /CMM (150-450); RED BLOOD CELL COUNT(AUTO) 4.24 MIL/uL (4.0-5.2)
[2020-05-18 05:02] LABS: CALCIUM, SERUM 8.3 mg/dL (8.5-10.1); CREATININE 0.5 mg/dL (0.6-1.3); MAGNESIUM 2.2 mg/dL (1.8-2.4); PHOSPHORUS 2.9 mg/dL (2.5-4.9); POTASSIUM 3.6 mmol/L (3.5-5.1)
[2020-05-18] MEDS: BLOOD SUGAR DIAGNOSTIC 1 EACH STRIP IN SCH ×4 (05:33→23:21)
[2020-05-18] MEDS: INSULIN REGULAR, HUMAN 100 UNIT/ML 3 ML VIAL SQ PRN (05:36)
--- NOTE | 2020-05-18 06:31 | NUR ---
RN NOTE RECEIVED CHEST X RAY RESULTS Extensive subcutaneous emphysema of bilateral chest wall and cervical neck with possible worsening on the right. Probable stable mediastinum.Persistent bilateral air space opacities.,CALLED DR HILL MADE AWARE,CONTINUE TO MONITOR.
--- NOTE | 2020-05-18 07:15 | NUR ---
REPORT RECEIVED FROM SIMRAN GAMING FOR GENARO. ON VENT AT 100% FIO2, PEEP 16. NOTED SIGNIFICANT SUBQ EMPHYSEMA ON CHEST AND NECK. BRUISING TO R NECK. ON VERSED AND FENTANYL FOR SEDATION, ADEQUATELY SEDATED. TURNER CATH DRAINING TO GRAVITY. ON GAS TESTER SHOWING SR.
--- NOTE | 2020-05-18 07:48 | NUR ---
RT AT BEDSIDE FOR ABG
[2020-05-18 07:59] LABS: ABG BASE EXCESS 0.3 mmol/L; ABG OXYGEN SATURATION 90.6 % (92.0-98.5); ABG PCO2 44.4 mmHg (35.0-45.0); ABG PO2 57.6 mmHg (75.0-100.0); COHb 0.6 % (0.5-1.5); MetHb 0.1 % (0.0-1.5); SITE, ABG Right Radial; VENT MODE, BG AC 20 400 +16 100%
--- NOTE | 2020-05-18 08:30 | NUR ---
RECEIVED CALL FROM DIETARY REGARDING NO FEEDINGS ORDERED. THEY RECOMMEND GLUCERNA 1.2 AT 20ML/HR. DR CHAVES IN ICU, NOTIFIED THAT PT HAS NOT HAD FEEDINGS FOR 11 DAYS PER DIETARY, RECEIVED ORDER FOR GLUCERNA 1.2 AT 20ML/HR.
--- NOTE | 2020-05-18 08:40 | NUR ---
PER RT JULY, RT WILL TITRATE DOWN PEEP. OK TO TOLERATE SATS 86% OR HIGHER PER DR CHAVES.
[2020-05-18] MEDS: ENOXAPARIN SODIUM 40 MG/0.4 ML DISP.SYRIN SQ SCH ×2 (09:42→21:14)
[2020-05-18] MEDS: PANTOPRAZOLE 40 MG/PACK PACK NG SCH (09:43)
[2020-05-18] MEDS ORDERED: GLUCERNA 1.2 1,000 ML BOTTLE NG PRN (11:30)
[2020-05-18] MEDS: MIDAZOLAM HCL 100 MG in IV NS 0.9% 80 ML IV PRN ×2 (11:40→22:41)
[2020-05-18] MEDS: FENTANYL CITRAT IV 2,500 MCG in IV NS 0.9% 200 ML IV PRN ×2 (11:43→22:34)
--- NOTE | 2020-05-18 15:45 | NUR ---
TOLERATING ON 100% FIO2 AT PEEP 10 WITH O2 SAT HIGH 80S. ADEQUATELY SEDATED WITH FENTANYL 1MCG/KG/HR AND VERSED 5MG/HR
--- NOTE | 2020-05-18 19:14 | NUR ---
REPORT GIVEN TO JAVAN GAMING FOR GENARO. NAD NOTED.
[2020-05-18] MEDS: INSULIN GLARGINE, 100 UNIT/ML CARTRIDGE SQ SCH (23:20)
[2020-05-19] VITALS (78 sets, daily range): BP systolic 80–135; BP diastolic 27–85
[2020-05-19 04:34] LABS: BASOPHILS % (AUTO) 0.3 % (0.0-2.0); EOSINOPHILS % (AUTO) 1.5 % (0.0-6.0); HEMATOCRIT 39 % (33-45); HEMOGLOBIN 12.4 g/dL (11.5-14.8); LYMPHOCYTES % (AUTO) 6.5 % (20.0-44.0); MEAN CORPUSCULAR HGB CONC 32 g/dl (31.0-36.0); MEAN CORPUSCULAR VOLUME 90 fL (82-100); MONOCYTES # (AUTO) 0.9 /CMM (0.1-1.30); MONOCYTES % (AUTO) 5.8 % (2.0-12.0); NEUTROPHILS # (AUTO) 12.8 /CMM (1.8-8.9); NEUTROPHILS % (AUTO) 85.9 % (43.0-81.0); PLATELET COUNT (AUTO) 194 /CMM (150-450); RED BLOOD CELL COUNT(AUTO) 4.36 MIL/uL (4.0-5.2); WHITE BLOOD COUNT (AUTO) 14.9 K/uL (4.3-11.0)
[2020-05-19 04:43] LABS: CALCIUM, SERUM 8.4 mg/dL (8.5-10.1); CREATININE 0.4 mg/dL (0.6-1.3); MAGNESIUM 2.2 mg/dL (1.8-2.4); PHOSPHORUS 3.8 mg/dL (2.5-4.9); POTASSIUM 3.7 mmol/L (3.5-5.1)
[2020-05-19] MEDS: CEFEPIME 2 GM in IV D5W 100 ML IV SCH ×3 (06:06→21:41)
[2020-05-19] MEDS: BLOOD SUGAR DIAGNOSTIC 1 EACH STRIP IN SCH ×3 (07:01→17:21)
--- NOTE | 2020-05-19 08:30 | NUR ---
patient remains in no acute distress in bed. patient did not have any significant change in condition during shift. all needs met, all orders carried out. will endorse care to am RN for continuity fo care.
[2020-05-19] MEDS: PANTOPRAZOLE 40 MG/PACK PACK NG SCH (09:25)
[2020-05-19] MEDS: ENOXAPARIN SODIUM 40 MG/0.4 ML DISP.SYRIN SQ SCH ×2 (09:27→22:25)
[2020-05-19] MEDS: INSULIN REGULAR, HUMAN 100 UNIT/ML 3 ML VIAL SQ PRN (11:53)
[2020-05-19] MEDS: PROSOURCE / PROSTAT (PYXIS) 30 ML UDC GT SCH ×2 (14:30→17:07)
--- NOTE | 2020-05-19 16:08 | NUR ---
1430 PROSTAT NOT GIVEN D/T 1700 PROSTAT ADMIN. AWAITING PROSTAT FROM DIETARY
[2020-05-19] MEDS: NOREPINEPHRINE 8 MG in IV NS 0.9% 242 ML IV PRN (17:01)
--- NOTE | 2020-05-19 18:18 | NUR ---
PATIENT'S FENTANYL AND VERSED IN LOCK BOX, WILL ENDORSE TO ONCOMING RN. ALSO, PATIENT'S HOB TO REMAIN ELEVATED AT HIGH FOWLERS D/T DESATURATION AT ANY OTHER POSITION.
--- NOTE | 2020-05-19 18:50 | NUR ---
PATIENT CONTINUES TO BE CONFUSED AND ATTEMPTING TO REMOVE OXYGEN. STILL ON NON-REBREATHER AND HI-FLOW, SATING IN THE HIGH 80S, LOW 90S. SINUS TACHY IN THE 110S NOTED ON BEDSIDE MONITOR. SAFETY MEASURES IMPLEMENTED, BED IN LOWEST POSITION, LOCKED, SIDE RAILS UP, CALL LIGHT WITHIN REACH. WILL ENDORSE TO ONCOMING SHIFT RN FOR CONTINUITY OF CARE. Addendum: 05/19/20 at 1854 by ROSALINDA PALENCIA RN DISREGARD NOTE: DOCUMENTED ON INCORRECT PATIENT.
--- NOTE | 2020-05-19 18:57 | NUR ---
PATIENT REMAINS IN BED. SINUS TACHY NOTED ON BEDSIDE MONITOR. SAFETY MEASURES IMPLEMENTED, BED IN LOWEST POSITION, LOCKED, SIDE RAILS UP, CALL LIGHT WITHIN REACH. WILL ENDORSE TO ONCOMING SHIFT RN FOR CONTINUITY OF CARE.
--- NOTE | 2020-05-19 19:00 | NUR ---
RECEIVED PATIENT ORALLY INTUBATED ON AC MODE,BREATHING LABORED,SATURATING IN THE LOW 80'S AND FREQUENTLY DROPS IN THE 70'S, ALREADY ON 100 % FIO2,WITH PEEP=14. SEDATED ON VERSED DRIP AND FENTANYL DRIP.LEVOPHED DRIP FOR BP SUPPORTTO MAINTAIN SBP=90.PICC LINE VIA [place] ,INTACT.NGT WITH ON GOING TUBE FEEDING TOLERATING WELL( WILL INCREASE TO GOAL RATE OF 40 ML/HR. COMFORT CARE DONE,ASPIRATION PRECAUTION IMPLEMENTED.
[2020-05-19] MEDS: MIDAZOLAM HCL 100 MG in IV NS 0.9% 80 ML IV PRN (21:43)
[2020-05-19] MEDS: FENTANYL CITRAT IV 2,500 MCG in IV NS 0.9% 200 ML IV PRN (21:59)
[2020-05-19] MEDS: INSULIN GLARGINE, 100 UNIT/ML CARTRIDGE SQ SCH (22:25)
--- NOTE | 2020-05-19 23:30 | NUR ---
SISTER CALLED FOR AN UPDATE.STATES THAT SHE WAS NEVER BEEN UPDATED BY MD SINCE HER SISTER GOT INTUBATED AND SHE WANTED TO TALK TO MD FOR UPDATES. BRIEFLY EXPLAINED TO SISTER THAT PATIENT IS VERY SICK, THAT HER BREATHING STATUS IS NOT REALLY GOOD AND VERY UNSTABLE .
[2020-05-20] VITALS (81 sets, daily range): BP systolic 80–142; BP diastolic 44–99
--- NOTE | 2020-05-20 | NUR ---
STILL DESATURATING TO LOW 80'S. BREATHING STILL LABORED,MAY NEED TO BE SEDATED MORE (PATIENT STRUGGLING TO BREATH) ABDOMINAL BREATHING,.WILL INCREASE SEDATION.
[2020-05-20] MEDS: BLOOD SUGAR DIAGNOSTIC 1 EACH STRIP IN SCH ×5 (00:41→23:46)
[2020-05-20] MEDS: INSULIN REGULAR, HUMAN 100 UNIT/ML 3 ML VIAL SQ PRN ×5 (00:49→23:47)
--- NOTE | 2020-05-20 02:00 | NUR ---
SINCE SEDATION WAS INCREASED(VERSED DRIP NOW AT 7 MG/HR) ,SATURATION IMPROVED ,SATURATION NOW SRATING 89-90 %,.STILL WITH DEEP INSPIRATORY EFFORT BUT LESS LABORED.NOW PATIENT MORE SEDATED WITH RASS -3.
[2020-05-20 04:39] LABS: BASOPHILS # (AUTO) 0.1 /CMM (0.0-0.2); BASOPHILS % (AUTO) 0.6 % (0.0-2.0); EOSINOPHILS % (AUTO) 1.2 % (0.0-6.0); HEMATOCRIT 39 % (33-45); HEMOGLOBIN 12.3 g/dL (11.5-14.8); LYMPHOCYTES # (AUTO) 0.6 /CMM (0.8-4.8); LYMPHOCYTES % (AUTO) 4.4 % (20.0-44.0); MEAN CORPUSCULAR HGB CONC 32 g/dl (31.0-36.0); MEAN CORPUSCULAR VOLUME 91 fL (82-100); MONOCYTES # (AUTO) 0.5 /CMM (0.1-1.30); MONOCYTES % (AUTO) 3.7 % (2.0-12.0); NEUTROPHILS % (AUTO) 90.1 % (43.0-81.0); PLATELET COUNT (AUTO) 149 /CMM (150-450); RED BLOOD CELL COUNT(AUTO) 4.29 MIL/uL (4.0-5.2); WHITE BLOOD COUNT (AUTO) 14.4 K/uL (4.3-11.0)
[2020-05-20 04:48] LABS: CALCIUM, SERUM 8.7 mg/dL (8.5-10.1); CREATININE 0.5 mg/dL (0.6-1.3); MAGNESIUM 2.2 mg/dL (1.8-2.4); PHOSPHORUS 3.8 mg/dL (2.5-4.9); POTASSIUM 3.9 mmol/L (3.5-5.1)
[2020-05-20] MEDS: CEFEPIME 2 GM in IV D5W 100 ML IV SCH ×3 (05:01→20:44)
[2020-05-20] MEDS: IV NS 0.9% 250 ML IV PRN (05:08)
[2020-05-20 05:44] LABS: ABG BASE EXCESS 0.7 mmol/L; ABG OXYGEN SATURATION 84.8 % (92.0-98.5); ABG PCO2 53.5 mmHg (35.0-45.0); ABG PH 7.329 (7.350-7.450); ABG PO2 50.4 mmHg (75.0-100.0); AaDO2 609.1 mmHg; COHb 1.4 % (0.5-1.5); MetHb 0.3 % (0.0-1.5); O2Hb 83.4 % (94.0-97.0); PEEP,BG 14 cm H2O; SITE, ABG Right Brachial; VT, ABG 400 mL
[2020-05-20] MEDS: PANTOPRAZOLE 40 MG/PACK PACK NG SCH (09:43)
[2020-05-20] MEDS: ENOXAPARIN SODIUM 40 MG/0.4 ML DISP.SYRIN SQ SCH ×2 (09:44→20:44)
[2020-05-20] MEDS: PROSOURCE / PROSTAT (PYXIS) 30 ML UDC GT SCH ×3 (09:45→17:22)
[2020-05-20] MEDS: MIDAZOLAM HCL 100 MG in IV NS 0.9% 80 ML IV PRN (14:21)
[2020-05-20] MEDS: FENTANYL CITRAT IV 2,500 MCG in IV NS 0.9% 200 ML IV PRN ×2 (14:22→21:57)
[2020-05-20] MEDS: GLUCERNA 1.2 1,000 ML BOTTLE NG PRN (15:43)
[2020-05-20 15:44] LABS: ABG BASE EXCESS 1.9 mmol/L; ABG OXYGEN SATURATION 83.2 % (92.0-98.5); ABG PCO2 74.9 mmHg (35.0-45.0); ABG PH 7.239 (7.350-7.450); ABG PO2 50.9 mmHg (75.0-100.0); AaDO2 587.2 mmHg; COHb 1.2 % (0.5-1.5); MetHb 0.2 % (0.0-1.5); PEEP,BG 14 cm H2O; SITE, ABG Right Femoral; VT, ABG 400 mL
[2020-05-20] MEDS ORDERED: PROPOFOL 100 ML IV PRN (16:00)
[2020-05-20] MEDS: PROPOFOL 100 ML IV PRN (17:56)
--- NOTE | 2020-05-20 19:00 | NUR ---
FENTANYL AND VERSED BROUGHT IN BY PHARMACY AND PLACED IN LOCK BOX, WILL ENDORSE TO ONCOMING SHIFT RN TO USE THAT BAG FIRST.
[2020-05-20] MEDS: INSULIN GLARGINE, 100 UNIT/ML CARTRIDGE SQ SCH (22:46)
[2020-05-21] VITALS (93 sets, daily range): BP systolic 67–118; BP diastolic 34–67
[2020-05-21] MEDS: MIDAZOLAM HCL 100 MG in IV NS 0.9% 80 ML IV PRN ×3 (00:54→22:20)
[2020-05-21] MEDS: NOREPINEPHRINE 8 MG in IV NS 0.9% 242 ML IV PRN ×2 (00:58→14:46)
[2020-05-21] MEDS: PROPOFOL 100 ML IV PRN ×3 (01:15→15:28)
[2020-05-21] MEDS: CEFEPIME 2 GM in IV D5W 100 ML IV SCH ×3 (05:19→22:09)
[2020-05-21 05:24] LABS: ABG BASE EXCESS 1.5 mmol/L; ABG OXYGEN SATURATION 91.6 % (92.0-98.5); ABG PCO2 78.2 mmHg (35.0-45.0); ABG PH 7.218 (7.350-7.450); ABG PO2 65.4 mmHg (75.0-100.0); AaDO2 569.4 mmHg; COHb 0.8 % (0.5-1.5); MetHb 0.3 % (0.0-1.5); O2Hb 90.6 % (94.0-97.0); SITE, ABG Left Radial
[2020-05-21 06:33] LABS: BASOPHILS # (AUTO) 0.1 /CMM (0.0-0.2); BASOPHILS % (AUTO) 0.4 % (0.0-2.0); EOSINOPHILS % (AUTO) 2.5 % (0.0-6.0); HEMATOCRIT 36 % (33-45); HEMOGLOBIN 11.3 g/dL (11.5-14.8); LYMPHOCYTES # (AUTO) 0.7 /CMM (0.8-4.8); LYMPHOCYTES % (AUTO) 4.3 % (20.0-44.0); MEAN CORPUSCULAR HGB CONC 32 g/dl (31.0-36.0); MEAN CORPUSCULAR VOLUME 92 fL (82-100); MONOCYTES # (AUTO) 0.9 /CMM (0.1-1.30); NEUTROPHILS # (AUTO) 13.4 /CMM (1.8-8.9); NEUTROPHILS % (AUTO) 86.8 % (43.0-81.0); PLATELET COUNT (AUTO) 134 /CMM (150-450); RED BLOOD CELL COUNT(AUTO) 3.89 MIL/uL (4.0-5.2); WHITE BLOOD COUNT (AUTO) 15.5 K/uL (4.3-11.0)
[2020-05-21] MEDS: BLOOD SUGAR DIAGNOSTIC 1 EACH STRIP IN SCH ×3 (06:41→17:56)
[2020-05-21] MEDS: INSULIN REGULAR, HUMAN 100 UNIT/ML 3 ML VIAL SQ PRN ×2 (06:42→17:57)
[2020-05-21 06:43] LABS: CALCIUM, SERUM 8.8 mg/dL (8.5-10.1); CREATININE 0.5 mg/dL (0.6-1.3); MAGNESIUM 2.3 mg/dL (1.8-2.4); POTASSIUM 4.1 mmol/L (3.5-5.1)
--- NOTE | 2020-05-21 06:54 | NUR ---
CALLED PHARMACY ABOUT BEING OUT ON FENTANYL. SAID THEY WOULD SEND IT UP.
--- NOTE | 2020-05-21 07:30 | NUR ---
RECEIVED PATIENT IN BED. NO ACUTE DISTRESS NOTED. PATIENT SEDATED. PATIENT INTUBATED, TOLERATING VENTILATOR SETTINGS WELL. PATIENT ON FISHERIES MANAGER, NSR NOTED, PER URBAN RENEWAL MANAGER RUNS ST WELL. PATIENT NGT IN PLACE, INTACT, RUNNING GLUCERNA AT 40. PATIENT TURNER CATHETER IN PLACE, INTACT, DRAINING TO GRAVITY. PATIENT [place] PICC INTACT, PATENT, FLUSHED WELL. PATIENT SAFETY MEASURES MAINTAINED, WILL CONTINUE TO MONITOR.
[2020-05-21] MEDS: PANTOPRAZOLE 40 MG/PACK PACK NG SCH (08:30)
[2020-05-21] MEDS: PROSOURCE / PROSTAT (PYXIS) 30 ML UDC GT SCH ×3 (08:30→17:57)
[2020-05-21] MEDS: ENOXAPARIN SODIUM 40 MG/0.4 ML DISP.SYRIN SQ SCH ×2 (08:31→22:19)
[2020-05-21] MEDS: FENTANYL CITRAT IV 2,500 MCG in IV NS 0.9% 200 ML IV PRN ×2 (09:12→20:53)
[2020-05-21 10:21] LABS: ABG BASE EXCESS 0.1 mmol/L; ABG OXYGEN SATURATION 84.4 % (92.0-98.5); ABG PCO2 89.8 mmHg (35.0-45.0); ABG PH 7.157 (7.350-7.450); ABG PO2 52.7 mmHg (75.0-100.0); AaDO2 570.5 mmHg; MetHb 0.1 % (0.0-1.5); O2Hb 83.5 % (94.0-97.0); PEEP,BG 14 cm H2O; SITE, ABG Right Radial; VT, ABG 400 mL
[2020-05-21 14:46] LABS: ABG BASE EXCESS -1.2 mmol/L; ABG OXYGEN SATURATION 88.5 % (92.0-98.5); ABG PCO2 75.6 mmHg (35.0-45.0); ABG PH 7.193 (7.350-7.450); ABG PO2 57.5 mmHg (75.0-100.0); AaDO2 579.9 mmHg; COHb 1.5 % (0.5-1.5); MetHb 0.5 % (0.0-1.5); O2Hb 86.7 % (94.0-97.0); SITE, ABG Right Radial; VENT MODE, BG ac 16 420 +14 100%
[2020-05-21] MEDS: VANCOMYCIN 0.75 GM in IV D5W 250 ML IV SCH (16:12)
--- NOTE | 2020-05-21 18:41 | NUR ---
PATIENT IN BED. NO ACUTE DISTRESS NOTED. PATIENT SEDATED. PATIENT INTUBATED, TOLERATING VENTILATOR SETTINGS WELL. PATIENT ON NDT INSPECTOR, ST NOTED, PER MANAGER TECHNICAL SUPPORT RUNS ST WELL. PATIENT NGT IN PLACE, INTACT, RUNNING GLUCERNA AT 40. PATIENT TURNER CATHETER IN PLACE, INTACT, DRAINING TO GRAVITY. PATIENT [place] PICC INTACT, PATENT, FLUSHED WELL. PATIENT SAFETY MEASURES MAINTAINED, WILL ENDORSE PLAN OF CARE TO ONCOMING SHIFT
[2020-05-21] MEDS: GLUCERNA 1.2 1,000 ML BOTTLE NG PRN (18:46)
--- NOTE | 2020-05-21 19:43 | NUR ---
RT NOTE Pt received intubated via 7.5 ETT @ 22cm. Airway is secure and patent. Vent is on ordered setting and plugged into red outlet w alarms set and audible. Pt sx'd w no adverse reactions. Will continue to monitor t/o shift. Addendum: 05/21/20 at 1943 by JAYDE ALMEIDA RT Amended: Links added.
--- NOTE | 2020-05-21 21:02 | NUR ---
agricultural education professor. received the pt rest on the bed. orally intubated, sedated with diprivan, ett 7.5,lip 22, ac 20,tv 400, fio2 100, peep 14. sat 94%. still tachypneic, rt nare ngt intact,glucerna 40ml/hfc patent, planimeter operator showing s tach. iv rt upper arm picc line fentanyl 3mcg/kg/min,versed 7mg/min,diprivan 10mcg/kg/min,levophed 0.08mcg/kg/min. hob elevated. will continue to monitor vitals
[2020-05-22] VITALS (83 sets, daily range): BP systolic 67–124; BP diastolic 33–61
--- NOTE | 2020-05-22 | NUR ---
SOLAR FABRICATION TECHNICIAN. FAMILY CALLED UP DATE GIVEN. FAMILY WANTS TO TALK TO THE MD
[2020-05-22] MEDS: VANCOMYCIN 0.75 GM in IV D5W 250 ML IV SCH ×3 (00:39→15:00)
[2020-05-22] MEDS: INSULIN GLARGINE, 100 UNIT/ML CARTRIDGE SQ SCH ×2 (01:31→23:39)
[2020-05-22] MEDS: NOREPINEPHRINE 8 MG in IV NS 0.9% 242 ML IV PRN ×2 (02:20→09:12)
--- NOTE | 2020-05-22 02:43 | NUR ---
QUALITY CONTROL LEAD. PT IS VERY UNSTABLE, FIO2 100. SAT 78.AT THIS TIME
--- NOTE | 2020-05-22 04:00 | NUR ---
SHAREPOINT ADMINISTRATOR. DID NOT TURN THE PT. PT IS VERY UNSTABLE. SAT 85.ORAL CARE GIVEN, LEVOPHED 0.09MCG/KG/MINDIPRIVAN 10MCG/KG/MIN, SUPERVISOR POULTRY HATCHERY SHOWING S TACH. FC PATENT. VERY LOW URINE OUT PUT
[2020-05-22] MEDS: PROPOFOL 100 ML IV PRN ×2 (04:48→18:42)
[2020-05-22] MEDS: BLOOD SUGAR DIAGNOSTIC 1 EACH STRIP IN SCH ×5 (04:50→23:32)
[2020-05-22] MEDS: CEFEPIME 2 GM in IV D5W 100 ML IV SCH ×3 (04:50→21:00)
[2020-05-22 05:03] LABS: CALCIUM, SERUM 8.8 mg/dL (8.5-10.1); CREATININE 0.8 mg/dL (0.6-1.3); POTASSIUM 4.4 mmol/L (3.5-5.1)
--- NOTE | 2020-05-22 07:30 | NUR ---
RECEIVED PATIENT IN BED. NO ACUTE DISTRESS NOTED. PATIENT SEDATED ON PROPOFOL, VERSED. PATIENT INTUBATED, SATURATING IN LOW 80S, RT AWARE AND IN ROOM. PATIENT ON TRAFFIC CONTROL FLAGGER, ST NOTED. PATIENT NGT IN PLACE, INTACT, RUNNING GLUCERNA AT 40. PATIENT TURNER CATHETER IN PLACE, INTACT, DRAINING TO GRAVITY. PATIENT [place] PICC INTACT, PATENT, FLUSHED WELL. PATIENT SAFETY MEASURES MAINTAINED, WILL CONTINUE TO MONITOR.
[2020-05-22] MEDS: FENTANYL CITRAT IV 2,500 MCG in IV NS 0.9% 200 ML IV PRN ×2 (07:44→19:16)
[2020-05-22] MEDS: PROSOURCE / PROSTAT (PYXIS) 30 ML UDC GT SCH ×3 (08:32→18:01)
[2020-05-22] MEDS: PANTOPRAZOLE 40 MG/PACK PACK NG SCH (08:33)
[2020-05-22] MEDS: ENOXAPARIN SODIUM 40 MG/0.4 ML DISP.SYRIN SQ SCH ×2 (08:39→21:00)
[2020-05-22] MEDS: MIDAZOLAM HCL 100 MG in IV NS 0.9% 80 ML IV PRN (11:21)
[2020-05-22] MEDS: INSULIN REGULAR, HUMAN 100 UNIT/ML 3 ML VIAL SQ PRN ×3 (12:30→23:41)
[2020-05-22 12:36] LABS: ABG BASE EXCESS -0.8 mmol/L; ABG OXYGEN SATURATION 78.7 % (92.0-98.5); ABG PCO2 75.9 mmHg (35.0-45.0); ABG PH 7.196 (7.350-7.450); AaDO2 594.1 mmHg; COHb 1.4 % (0.5-1.5); MetHb 0.4 % (0.0-1.5); O2Hb 77.3 % (94.0-97.0); SITE, ABG Left Radial; VENT MODE, BG AC 16 420 100% +14
--- NOTE | 2020-05-22 15:49 | NUR ---
MITCHELL CAME BACK AT 23. NON-ADMINISTERING VANCOMYCIN DOSE SCHEDULED FOR 1500
[2020-05-22 16:03] LABS: ABG BASE EXCESS -1.7 mmol/L; ABG OXYGEN SATURATION 87.6 % (92.0-98.5); ABG PH 7.196 (7.350-7.450); ABG PO2 54.9 mmHg (75.0-100.0); AaDO2 585.1 mmHg; COHb 1.6 % (0.5-1.5); MetHb 0.3 % (0.0-1.5); O2Hb 85.9 % (94.0-97.0); PEEP,BG 15 cm H2O; SITE, ABG Left Radial; VENT MODE, BG PCV 44
[2020-05-22] MEDS: GLUCERNA 1.2 1,000 ML BOTTLE NG PRN (17:10)
--- NOTE | 2020-05-22 18:37 | NUR ---
PATIENT IN BED. NO ACUTE DISTRESS NOTED. PATIENT SEDATED ON PROPOFOL, VERSED. PATIENT INTUBATED, TOLERATING SETTINGS WELL, SATURATING 92%. PATIENT ON ELECTRONIC CONSOLE DISPLAY OPERATOR, ST NOTED. PATIENT NGT IN PLACE, INTACT, RUNNING GLUCERNA AT 40. PATIENT TURNER CATHETER IN PLACE, INTACT, DRAINING TO GRAVITY. PATIENT [place] PICC INTACT, PATENT, FLUSHED WELL. PATIENT SAFETY MEASURES MAINTAINED, WILL ENDORSE PLAN OF CARE TO ONCOMING SHIFT
[2020-05-22] MEDS ORDERED: VANCOMYCIN 0.75 GM in IV D5W 250 ML IV SCH (20:00)
[2020-05-22] MEDS ORDERED: NOREPINEPHRINE 4 MG/4 ML AMPUL IV ONE (20:49)
[2020-05-23] VITALS (74 sets, daily range): BP systolic 77–146; BP diastolic 40–106
[2020-05-23] MEDS: PROPOFOL 100 ML IV PRN ×2 (00:58→17:13)
[2020-05-23] MEDS: MIDAZOLAM HCL 100 MG in IV NS 0.9% 80 ML IV PRN ×3 (00:59→23:35)
[2020-05-23] MEDS: CEFEPIME 2 GM in IV D5W 100 ML IV SCH ×2 (04:23→12:33)
[2020-05-23] MEDS: IV NS 0.9% 250 ML IV PRN (04:24)
[2020-05-23 05:07] LABS: BASOPHILS % (AUTO) 0.3 % (0.0-2.0); EOSINOPHILS % (AUTO) 4.4 % (0.0-6.0); HEMATOCRIT 32 % (33-45); HEMOGLOBIN 10.1 g/dL (11.5-14.8); LYMPHOCYTES # (AUTO) 0.7 /CMM (0.8-4.8); LYMPHOCYTES % (AUTO) 4.5 % (20.0-44.0); MEAN CORPUSCULAR HGB CONC 31 g/dl (31.0-36.0); MEAN CORPUSCULAR VOLUME 92 fL (82-100); MONOCYTES # (AUTO) 1.5 /CMM (0.1-1.30); MONOCYTES % (AUTO) 9.7 % (2.0-12.0); NEUTROPHILS # (AUTO) 12.8 /CMM (1.8-8.9); NEUTROPHILS % (AUTO) 81.1 % (43.0-81.0); PLATELET COUNT (AUTO) 101 /CMM (150-450); RED BLOOD CELL COUNT(AUTO) 3.51 MIL/uL (4.0-5.2); WHITE BLOOD COUNT (AUTO) 15.7 K/uL (4.3-11.0)
[2020-05-23 05:32] LABS: CALCIUM, SERUM 9.1 mg/dL (8.5-10.1); CREATININE 0.9 mg/dL (0.6-1.3); MAGNESIUM 2.5 mg/dL (1.8-2.4); PHOSPHORUS 3.7 mg/dL (2.5-4.9); POTASSIUM 4.6 mmol/L (3.5-5.1)
[2020-05-23] MEDS: BLOOD SUGAR DIAGNOSTIC 1 EACH STRIP IN SCH ×4 (06:19→23:12)
[2020-05-23] MEDS: INSULIN REGULAR, HUMAN 100 UNIT/ML 3 ML VIAL SQ PRN ×4 (06:21→23:12)
[2020-05-23] MEDS: NOREPINEPHRINE 8 MG in IV NS 0.9% 242 ML IV PRN ×3 (06:27→23:33)
[2020-05-23] MEDS: FENTANYL CITRAT IV 2,500 MCG in IV NS 0.9% 200 ML IV PRN ×3 (07:04→23:34)
[2020-05-23 08:42] LABS: ABG PCO2 68.5 mmHg (35.0-45.0); ABG PH 7.211 (7.350-7.450); ABG PO2 55.7 mmHg (75.0-100.0); AaDO2 588.8 mmHg; COHb 1.8 % (0.5-1.5); MetHb 0.3 % (0.0-1.5); O2Hb 86.2 % (94.0-97.0); SITE, ABG Right Radial; VENT MODE, BG AC 16 PC 44 100% +5
[2020-05-23] MEDS: PROSOURCE / PROSTAT (PYXIS) 30 ML UDC GT SCH ×3 (09:00→17:02)
[2020-05-23] MEDS: PANTOPRAZOLE 40 MG/PACK PACK NG SCH (10:02)
[2020-05-23] MEDS: ENOXAPARIN SODIUM 40 MG/0.4 ML DISP.SYRIN SQ SCH ×2 (10:03→21:29)
[2020-05-23] MEDS ORDERED: MEROPENEM 1 G in IV NS 0.9% 100 ML IV SCH (15:00)
[2020-05-23] MEDS: MEROPENEM 1 G in IV NS 0.9% 100 ML IV SCH (15:48)
[2020-05-23] MEDS: GLUCERNA 1.2 1,000 ML BOTTLE NG PRN ×2 (17:46→19:06)
--- NOTE | 2020-05-23 20:56 | NUR ---
UNABLE TO ASSESS BACK D/T HEMODYNAMIC INSTABILITY Addendum: 05/23/20 at 2100 by BURTON GUZMAN RN Amended: Links added.
[2020-05-23] MEDS: INSULIN GLARGINE, 100 UNIT/ML CARTRIDGE SQ SCH (23:10)
[2020-05-24] VITALS (93 sets, daily range): BP systolic 80–120; BP diastolic 33–82
[2020-05-24 04:45] LABS: BASOPHILS # (AUTO) 0.1 /CMM (0.0-0.2); BASOPHILS % (AUTO) 0.4 % (0.0-2.0); EOSINOPHILS % (AUTO) 6.4 % (0.0-6.0); HEMATOCRIT 31 % (33-45); HEMOGLOBIN 9.8 g/dL (11.5-14.8); LYMPHOCYTES # (AUTO) 0.4 /CMM (0.8-4.8); LYMPHOCYTES % (AUTO) 2.6 % (20.0-44.0); MEAN CORPUSCULAR HGB CONC 32 g/dl (31.0-36.0); MEAN CORPUSCULAR VOLUME 92 fL (82-100); MONOCYTES # (AUTO) 1.5 /CMM (0.1-1.30); MONOCYTES % (AUTO) 9.4 % (2.0-12.0); NEUTROPHILS % (AUTO) 81.2 % (43.0-81.0); PLATELET COUNT (AUTO) 89 /CMM (150-450); RED BLOOD CELL COUNT(AUTO) 3.35 MIL/uL (4.0-5.2); WHITE BLOOD COUNT (AUTO) 16.1 K/uL (4.3-11.0)
[2020-05-24] MEDS: MEROPENEM 1 G in IV NS 0.9% 100 ML IV SCH ×3 (05:00→21:06)
[2020-05-24 05:05] LABS: CALCIUM, SERUM 9.1 mg/dL (8.5-10.1); CREATININE 1.2 mg/dL (0.6-1.3); MAGNESIUM 2.4 mg/dL (1.8-2.4); PHOSPHORUS 3.9 mg/dL (2.5-4.9); POTASSIUM 5.3 mmol/L (3.5-5.1)
[2020-05-24 05:27] LABS: ABG BASE EXCESS -2.8 mmol/L; ABG OXYGEN SATURATION 85.5 % (92.0-98.5); ABG PCO2 66.2 mmHg (35.0-45.0); ABG PH 7.211 (7.350-7.450); ABG PO2 50.7 mmHg (75.0-100.0); AaDO2 596.1 mmHg; COHb 1.5 % (0.5-1.5); MetHb 0.1 % (0.0-1.5); O2Hb 84.1 % (94.0-97.0); SITE, ABG Right Radial
[2020-05-24] MEDS: BLOOD SUGAR DIAGNOSTIC 1 EACH STRIP IN SCH ×3 (06:15→18:38)
[2020-05-24] MEDS: INSULIN REGULAR, HUMAN 100 UNIT/ML 3 ML VIAL SQ PRN ×3 (06:16→18:43)
[2020-05-24] MEDS: PROPOFOL 100 ML IV PRN (06:20)
[2020-05-24 06:36] LABS: BAND % (MANUAL) 10 % (0.0-5.0); EOSINOPHILS % (MANUAL) 5 % (0-4); LYMPHOCYTES % (MANUAL) 3 % (16-48); MONOCYTES % (MANUAL) 9 % (0-11.0); NEUTROPHILS % (MANUAL) 73 (42-76)
[2020-05-24] MEDS: ENOXAPARIN SODIUM 40 MG/0.4 ML DISP.SYRIN SQ SCH ×2 (08:37→21:00)
--- NOTE | 2020-05-24 08:37 | NUR ---
PLATELETS TRENDING DOWN, PER DR. CHAVES, HOLD Launchr.
[2020-05-24] MEDS: PROSOURCE / PROSTAT (PYXIS) 30 ML UDC GT SCH ×3 (08:45→18:31)
[2020-05-24] MEDS: PANTOPRAZOLE 40 MG/PACK PACK NG SCH (08:45)
--- NOTE | 2020-05-24 09:00 | NUR ---
RECEIVED PATIENT IN BED THIS MORNING. PATIENT IS INTUBATED, PEEP BACK TO 16. PATIENT HAS GENERALIZED EDEMA. SR IN THE 90S NOTED ON BEDSIDE MONITOR. PATIENT ON VERSED, FENTANYL AND DIPRIVAN DRIP. PATIENT'S SATURATION IS VERY UNSTABLE, MINIMAL MOVEMENT CAUSES PATIENT TO DESATURATE. TURNER DRAINING URINE. NGT ON FEEDING, AUSCULTATED FOR PLACEMENT VERIFICATION.
[2020-05-24] MEDS: MIDAZOLAM HCL 100 MG in IV NS 0.9% 80 ML IV PRN ×2 (11:58→22:07)
[2020-05-24] MEDS: FENTANYL CITRAT IV 2,500 MCG in IV NS 0.9% 200 ML IV PRN ×2 (11:59→22:07)
[2020-05-24] MEDS: GLUCERNA 1.2 1,000 ML BOTTLE NG PRN (12:37)
--- NOTE | 2020-05-24 13:00 | NUR ---
DR CHAVES AWARE OF PATIENT'S O2 SAT NOT READING ON MONITOR DESPITE MULTIPLE ATTEMPTS BY THE RT AND MYSELF. STAT ABG ORDERED.
[2020-05-24 13:37] LABS: ABG BASE EXCESS -4.8 mmol/L; ABG OXYGEN SATURATION 83.8 % (92.0-98.5); ABG PCO2 74.4 mmHg (35.0-45.0); ABG PH 7.147 (7.350-7.450); AaDO2 587.6 mmHg; COHb 1.7 % (0.5-1.5); MetHb 0.5 % (0.0-1.5); SITE, ABG Right Radial; VENT MODE, BG PC44 RR16 +16 100%
[2020-05-24] MEDS: NOREPINEPHRINE 8 MG in IV NS 0.9% 242 ML IV PRN ×2 (15:27→21:23)
--- NOTE | 2020-05-24 15:45 | NUR ---
INFORMED DR WILLAMS THAT PATIENT'S LEFT SIDE OF FACE HAS INCREASED SWELLING
--- NOTE | 2020-05-24 16:09 | NUR ---
DR WILLAMS CAME TO ROUND ON PATIENT, PER MD, PATIENT SEEMS TO HAVE LEFT SIDED PNEUMOTHORAX, CHEST X RAY PLACED TO CONFIRM. CONTACTED RADIOLOGY TO INFORM THEM OF ORDER PLACED Addendum: 05/24/20 at 1613 by ROSALINDA PALENCIA RN ALSO AWARE THAT PATIENT'S O2 SAT IS NOT READING ON MONITOR DESPITE SEVERAL TRIES FROM DIFFERENT LOCATIONS
--- NOTE | 2020-05-24 19:28 | NUR ---
PER DR WILLAMS, NNO PERTAININT CXR
[2020-05-24] MEDS: INSULIN GLARGINE, 100 UNIT/ML CARTRIDGE SQ SCH (22:40)
[2020-05-25] VITALS (93 sets, daily range): BP systolic 64–142; BP diastolic 20–73
[2020-05-25] MEDS: BLOOD SUGAR DIAGNOSTIC 1 EACH STRIP IN SCH ×5 (00:13→23:39)
[2020-05-25] MEDS: INSULIN REGULAR, HUMAN 100 UNIT/ML 3 ML VIAL SQ PRN ×5 (00:31→23:37)
[2020-05-25] MEDS ORDERED: NOREPINEPHRINE 4 MG/4 ML AMPUL IV ONE (02:59)
[2020-05-25] MEDS: NOREPINEPHRINE 8 MG in IV NS 0.9% 242 ML IV PRN (03:08)
[2020-05-25 04:40] LABS: BASOPHILS # (AUTO) 0.4 /CMM (0.0-0.2); BASOPHILS % (AUTO) 2.2 % (0.0-2.0); EOSINOPHILS % (AUTO) 8.1 % (0.0-6.0); HEMATOCRIT 32 % (33-45); LYMPHOCYTES # (AUTO) 0.5 /CMM (0.8-4.8); LYMPHOCYTES % (AUTO) 2.7 % (20.0-44.0); MEAN CORPUSCULAR HGB CONC 32 g/dl (31.0-36.0); MEAN CORPUSCULAR VOLUME 92 fL (82-100); MONOCYTES # (AUTO) 0.6 /CMM (0.1-1.30); MONOCYTES % (AUTO) 3.5 % (2.0-12.0); NEUTROPHILS # (AUTO) 14.3 /CMM (1.8-8.9); NEUTROPHILS % (AUTO) 83.5 % (43.0-81.0); PLATELET COUNT (AUTO) 96 /CMM (150-450); RED BLOOD CELL COUNT(AUTO) 3.44 MIL/uL (4.0-5.2); WHITE BLOOD COUNT (AUTO) 17.1 K/uL (4.3-11.0)
[2020-05-25 04:58] LABS: CREATININE 1.6 mg/dL (0.6-1.3); MAGNESIUM 2.2 mg/dL (1.8-2.4); PHOSPHORUS 3.7 mg/dL (2.5-4.9); POTASSIUM 4.8 mmol/L (3.5-5.1)
[2020-05-25] MEDS: MEROPENEM 1 G in IV NS 0.9% 100 ML IV SCH ×3 (05:02→21:35)
[2020-05-25 05:13] LABS: BAND % (MANUAL) 5 % (0.0-5.0); EOSINOPHILS % (MANUAL) 11 % (0-4); LYMPHOCYTES % (MANUAL) 4 % (16-48); MONOCYTES % (MANUAL) 8 % (0-11.0); NEUTROPHILS % (MANUAL) 72 (42-76)
[2020-05-25 05:43] LABS: ABG BASE EXCESS -3.4 mmol/L; ABG OXYGEN SATURATION 88.4 % (92.0-98.5); ABG PCO2 50.2 mmHg (35.0-45.0); ABG PH 7.287 (7.350-7.450); ABG PO2 51.6 mmHg (75.0-100.0); AaDO2 611.2 mmHg; COHb 1.2 % (0.5-1.5); MetHb 0.2 % (0.0-1.5); O2Hb 87.2 % (94.0-97.0); PEEP,BG 16 cm H2O; SITE, ABG Right Radial
[2020-05-25] MEDS ORDERED: NOREPINEPHRINE 32 MG in IV NS 0.9% 250 ML IV PRN (08:00)
[2020-05-25] MEDS: PANTOPRAZOLE 40 MG/PACK PACK NG SCH (08:28)
[2020-05-25] MEDS: PROSOURCE / PROSTAT (PYXIS) 30 ML UDC GT SCH ×3 (08:28→17:09)
[2020-05-25] MEDS: ENOXAPARIN SODIUM 40 MG/0.4 ML DISP.SYRIN SQ SCH ×2 (08:29→21:39)
[2020-05-25] MEDS: FENTANYL CITRAT IV 2,500 MCG in IV NS 0.9% 200 ML IV PRN ×2 (09:13→23:31)
[2020-05-25] MEDS: MIDAZOLAM HCL 100 MG in IV NS 0.9% 80 ML IV PRN ×2 (09:13→23:33)
--- NOTE | 2020-05-25 10:39 | NUR ---
PATIENT'S NGT IS CURRENTLY CLOGGED, EARLIER THIS MORNING, ATTEMPTED TO ADMINISTER MEDS VIA NGT AND FLUSH THE LINE WITH WATER. WAS UNABLE TO. AFTER MULTIPLE INTERVENTIONS, NGT REMAINS CLOGGED. WILL INFORM DR WILLAMS.
--- NOTE | 2020-05-25 16:23 | NUR ---
LEVOPHED RUNNING AT 0.2MCG/KG/MIN. IV SPREADSHEET NOT ALLOWING TO INSERT MCG/KG/MIN. SPOKE WITH PHARMACY, EDITED ORDER TO FIX ISSUE TO PROPERLY DOCUMENT ON SPREADSHEET.
[2020-05-25] MEDS: NOREPINEPHRINE 32 MG in IV NS 0.9% 218 ML IV PRN (16:35)
[2020-05-25] MEDS: PROPOFOL 100 ML IV PRN ×2 (17:29)
[2020-05-25] MEDS: GLUCERNA 1.2 1,000 ML BOTTLE NG PRN (17:56)
--- NOTE | 2020-05-25 20:00 | NUR ---
PATIENT IS IN CRITICAL STATE. MAXED OUT ON FENTANYL AND VERSED WITH A 20MCG ON dIPRIVAN. PATIENT IS SINUS TACH ON THE MONITOR WITH HR AT 138. BP US 105/52 ON LEVO RUNNING AT 0.2MCG. PATIENT SHOWS EXCESSIVE EDEMA. FAMILY CONTINUES TO WANT PATIENT FULL CODE. UNABLE TO OBTAIN A PULSE OXIMETRY READING.
--- NOTE | 2020-05-25 20:10 | NUR ---
RT NOTE Pt received intubated via 7.5 ETT @ 22cm at the lip. Airway is secure and patent. Vent is on ordered setting and plugged into red outlet w alarms set and audible. Pt sx'd w no adverse reactions. Will continue to monitor t/o shift. unable to get spo2 reading, changed probe to multiple sites. RN aware. Addendum: 05/25/20 at 2011 by JAYDE ALMEIDA RT Amended: Links added.
[2020-05-25] MEDS: INSULIN GLARGINE, 100 UNIT/ML CARTRIDGE SQ SCH (23:39)
[2020-05-26] VITALS (96 sets, daily range): BP systolic 77–140; BP diastolic 41–71
[2020-05-26] MEDS: IV NS 0.9% 250 ML IV PRN (00:02)
[2020-05-26] MEDS: PROPOFOL 100 ML IV PRN ×2 (02:49→13:38)
[2020-05-26] MEDS ORDERED: NOREPINEPHRINE 4 MG/4 ML AMPUL IV ONE (03:33)
[2020-05-26] MEDS: NOREPINEPHRINE 32 MG in IV NS 0.9% 218 ML IV PRN ×2 (03:43→13:59)
[2020-05-26] MEDS: ACETAMINOPHEN 650 MG/20.3 ML UDC NG PRN ×3 (03:44→22:45)
[2020-05-26 04:31] LABS: BASOPHILS # (AUTO) 0.2 /CMM (0.0-0.2); BASOPHILS % (AUTO) 0.8 % (0.0-2.0); EOSINOPHILS % (AUTO) 7.8 % (0.0-6.0); HEMATOCRIT 33 % (33-45); HEMOGLOBIN 10.2 g/dL (11.5-14.8); LYMPHOCYTES # (AUTO) 1.4 /CMM (0.8-4.8); LYMPHOCYTES % (AUTO) 7.8 % (20.0-44.0); MEAN CORPUSCULAR HGB CONC 31 g/dl (31.0-36.0); MEAN CORPUSCULAR VOLUME 93 fL (82-100); MONOCYTES # (AUTO) 1.7 /CMM (0.1-1.30); MONOCYTES % (AUTO) 9.4 % (2.0-12.0); NEUTROPHILS # (AUTO) 13.6 /CMM (1.8-8.9); NEUTROPHILS % (AUTO) 74.2 % (43.0-81.0); PLATELET COUNT (AUTO) 113 /CMM (150-450); RED BLOOD CELL COUNT(AUTO) 3.55 MIL/uL (4.0-5.2); WHITE BLOOD COUNT (AUTO) 18.3 K/uL (4.3-11.0)
[2020-05-26 04:40] LABS: CALCIUM, SERUM 9.3 mg/dL (8.5-10.1); MAGNESIUM 2.4 mg/dL (1.8-2.4); PHOSPHORUS 4.1 mg/dL (2.5-4.9); POTASSIUM 5.5 mmol/L (3.5-5.1)
[2020-05-26] MEDS: MEROPENEM 1 G in IV NS 0.9% 100 ML IV SCH ×3 (05:13→22:46)
[2020-05-26] MEDS: BLOOD SUGAR DIAGNOSTIC 1 EACH STRIP IN SCH ×3 (05:13→18:33)
[2020-05-26] MEDS: PANTOPRAZOLE 40 MG/PACK PACK NG SCH (08:16)
[2020-05-26] MEDS: PROSOURCE / PROSTAT (PYXIS) 30 ML UDC GT SCH ×3 (08:16→16:26)
[2020-05-26] MEDS: ENOXAPARIN SODIUM 40 MG/0.4 ML DISP.SYRIN SQ SCH (08:25)
[2020-05-26 09:00] LABS: ABG BASE EXCESS -6.3 mmol/L; ABG OXYGEN SATURATION 94.8 % (92.0-98.5); ABG PCO2 47.7 mmHg (35.0-45.0); ABG PH 7.256 (7.350-7.450); AaDO2 591.3 mmHg; COHb 0.8 % (0.5-1.5); MetHb 0.3 % (0.0-1.5); O2Hb 93.8 % (94.0-97.0); PEEP,BG 16 cm H2O; SITE, ABG Right Radial; VENT MODE, BG PCV 44
[2020-05-26] MEDS: FENTANYL CITRAT IV 2,500 MCG in IV NS 0.9% 200 ML IV PRN ×2 (09:48→21:21)
[2020-05-26] MEDS: MIDAZOLAM HCL 100 MG in IV NS 0.9% 80 ML IV PRN ×2 (09:49→22:52)
[2020-05-26] MEDS: INSULIN REGULAR, HUMAN 100 UNIT/ML 3 ML VIAL SQ PRN ×2 (12:13→18:38)
[2020-05-26] MEDS: GLUCERNA 1.2 1,000 ML BOTTLE NG PRN (15:07)
[2020-05-26] MEDS: APIXABAN 2.5 MG TABLET PO SCH (16:26)
[2020-05-26 20:43] LABS: BILIRUBIN,URINE SMALL (NEGATIVE); COLOR,URINE YELLOW (YELLOW); LEUKOCYTE ESTERASE ,URINE LARGE (NEGATIVE); NITRITE, URINE NEGATIVE (NEGATIVE); PROTEIN,URINE 100 mg/dl (NEGATIVE); UGLUCOSE NEGATIVE (NEGATIVE); UROBILINOGEN,URINE 0.2 EU/dL (0.2)
[2020-05-26 20:50] LABS: BACTERIA,URINE 2+ /HPF (None Seen); SQUAMOUS EPITHELIAL CELL,UR Few /HPF (None Seen); WBC,URINE TOO NUMEROUS TO COUN /HPF (0-3)
[2020-05-26] MEDS: INSULIN GLARGINE, 100 UNIT/ML CARTRIDGE SQ SCH (23:18)
[2020-05-27] VITALS (85 sets, daily range): BP systolic 85–118; BP diastolic 52–72
[2020-05-27] MEDS: BLOOD SUGAR DIAGNOSTIC 1 EACH STRIP IN SCH ×5 (00:53→22:00)
[2020-05-27 05:19] LABS: BASOPHILS # (AUTO) 0.1 /CMM (0.0-0.2); BASOPHILS % (AUTO) 0.4 % (0.0-2.0); EOSINOPHILS % (AUTO) 11.5 % (0.0-6.0); HEMATOCRIT 32 % (33-45); HEMOGLOBIN 10.2 g/dL (11.5-14.8); LYMPHOCYTES # (AUTO) 1.3 /CMM (0.8-4.8); LYMPHOCYTES % (AUTO) 6.4 % (20.0-44.0); MEAN CORPUSCULAR HGB CONC 32 g/dl (31.0-36.0); MEAN CORPUSCULAR VOLUME 91 fL (82-100); NEUTROPHILS # (AUTO) 15.1 /CMM (1.8-8.9); NEUTROPHILS % (AUTO) 76.7 % (43.0-81.0); PLATELET COUNT (AUTO) 113 /CMM (150-450); RED BLOOD CELL COUNT(AUTO) 3.53 MIL/uL (4.0-5.2); WHITE BLOOD COUNT (AUTO) 19.7 K/uL (4.3-11.0)
[2020-05-27 05:19] LABS: ABG BASE EXCESS -7.1 mmol/L; ABG OXYGEN SATURATION 94.7 % (92.0-98.5); ABG PCO2 41.8 mmHg (35.0-45.0); ABG PH 7.281 (7.350-7.450); ABG PO2 74.9 mmHg (75.0-100.0); AaDO2 596.3 mmHg; COHb 0.9 % (0.5-1.5); MetHb 0.1 % (0.0-1.5); O2Hb 93.8 % (94.0-97.0); SITE, ABG Left Radial
[2020-05-27] MEDS: PROPOFOL 100 ML IV PRN ×2 (05:20→18:26)
[2020-05-27] MEDS: MEROPENEM 1 G in IV NS 0.9% 100 ML IV SCH ×3 (05:24→23:52)
[2020-05-27 05:33] LABS: CARBON DIOXIDE 22 mmol/L (21-32); CHLORIDE 111 mmol/L (98-107); CREATININE 2.4 mg/dL (0.6-1.3); GLUCOSE 180 mg/dL (74-106); MAGNESIUM 2.2 mg/dL (1.8-2.4); PHOSPHORUS 4.2 mg/dL (2.5-4.9); POTASSIUM 5.3 mmol/L (3.5-5.1); SODIUM SERUM 142 mmol/L (136-145)
[2020-05-27 05:58] LABS: UREA NITROGEN, BLOOD 88 mg/dL (7-18)
--- NOTE | 2020-05-27 06:00 | NUR ---
RN NOTE CChristianne SANDOVAL NOTIFIED OF BUN 88, LACTIC 2.0. WILL AWAIT FOR RESPONSE
--- NOTE | 2020-05-27 06:10 | NUR ---
RN NOTE Antoine RICHARDS IS AWARE. NO NEW ORDERS PLACED AT THIS TIME
[2020-05-27] MEDS: INSULIN REGULAR, HUMAN 100 UNIT/ML 3 ML VIAL SQ PRN ×4 (06:41→22:22)
[2020-05-27] MEDS: PANTOPRAZOLE 40 MG/PACK PACK NG SCH (08:15)
[2020-05-27] MEDS: PROSOURCE / PROSTAT (PYXIS) 30 ML UDC GT SCH ×3 (08:15→16:50)
[2020-05-27] MEDS: APIXABAN 2.5 MG TABLET PO SCH ×2 (08:26→17:26)
--- NOTE | 2020-05-27 09:42 | NUR ---
WOUND CARE CONSULT: REVIEWED CHART, NURSING DOCUMENTATION WHICH INDICATES INTUBATED PATIENT. RECOMMENDATIONS MADE FOR SKIN PROTECTION. DISCUSSED WITH NURSING STAFF. PT IS ON [facility] LOW AIRLOSS BED.
[2020-05-27] MEDS: FENTANYL CITRAT IV 2,500 MCG in IV NS 0.9% 200 ML IV PRN ×2 (10:25→22:45)
[2020-05-27] MEDS: MIDAZOLAM HCL 100 MG in IV NS 0.9% 80 ML IV PRN ×2 (10:25→22:40)
[2020-05-27] MEDS: ACETAMINOPHEN 650 MG/20.3 ML UDC NG PRN (10:54)
[2020-05-27 12:00] LABS: BILIRUBIN,DIRECT 0.4 mg/dL (0.0-0.2); BILIRUBIN,TOTAL 0.5 mg/dL (0.2-1.0)
[2020-05-27] MEDS: NOREPINEPHRINE 32 MG in IV NS 0.9% 218 ML IV PRN (12:23)
[2020-05-27] MEDS ORDERED: VANCOMYCIN 1 GM in IV D5W 250 ML IV ONE (13:00)
[2020-05-27] MEDS: GLUCERNA 1.2 1,000 ML BOTTLE NG PRN (17:26)
[2020-05-27] MEDS: INSULIN GLARGINE, 100 UNIT/ML CARTRIDGE SQ SCH (22:21)
[2020-05-28] VITALS (48 sets, daily range): BP systolic 90–133; BP diastolic 51–82
[2020-05-28] MEDS ORDERED: VANCOMYCIN 0.75 GM in IV D5W 250 ML IV SCH (01:00)
[2020-05-28 04:36] LABS: BASOPHILS # (AUTO) 0.2 /CMM (0.0-0.2); EOSINOPHILS % (AUTO) 13.9 % (0.0-6.0); HEMATOCRIT 32 % (33-45); HEMOGLOBIN 10.1 g/dL (11.5-14.8); LYMPHOCYTES % (AUTO) 4.8 % (20.0-44.0); MEAN CORPUSCULAR HGB CONC 31 g/dl (31.0-36.0); MEAN CORPUSCULAR VOLUME 91 fL (82-100); MONOCYTES % (AUTO) 0.2 % (2.0-12.0); NEUTROPHILS # (AUTO) 17.3 /CMM (1.8-8.9); NEUTROPHILS % (AUTO) 80.1 % (43.0-81.0); PLATELET COUNT (AUTO) 121 /CMM (150-450); RED BLOOD CELL COUNT(AUTO) 3.53 MIL/uL (4.0-5.2); WHITE BLOOD COUNT (AUTO) 21.6 K/uL (4.3-11.0)
[2020-05-28 04:49] LABS: CALCIUM, SERUM 8.8 mg/dL (8.5-10.1); CREATININE 2.5 mg/dL (0.6-1.3); MAGNESIUM 2.3 mg/dL (1.8-2.4); PHOSPHORUS 3.8 mg/dL (2.5-4.9); POTASSIUM 5.1 mmol/L (3.5-5.1)
[2020-05-28] MEDS: PROPOFOL 100 ML IV PRN (04:53)
[2020-05-28] MEDS: INSULIN REGULAR, HUMAN 100 UNIT/ML 3 ML VIAL SQ PRN ×4 (04:56→23:21)
[2020-05-28] MEDS: ACETAMINOPHEN 650 MG/20.3 ML UDC NG PRN (05:45)
[2020-05-28] MEDS: BLOOD SUGAR DIAGNOSTIC 1 EACH STRIP IN SCH ×4 (06:00→23:21)
--- NOTE | 2020-05-28 07:26 | NUR ---
RN notes Patient in bed, sedated with no distress noted. Breathing even and unlabored. No physical manifestation of pain or discomfort ON Profopol drip at 20mcg/kg/hr, No adverse effect noted. On bilateral wrist restraint, in place. Released q 2 hours for circulation, hygiene and repositioning. On Levo drip at 0.3 to maintain sbp above 90's, no side effects noted. On Versed and fentanyl drip, tolerated well. no signs symptoms of adverse effect noted. Noted with elevated temp of 103, cooling measures provided. Tylenol administered. with hlep. Temperature went down to 99.8. Endorsed to next shift for continuity of care
--- NOTE | 2020-05-28 07:30 | NUR ---
pt vented/intubated, NAD noted, hot to the touch. gallego draining to gravity. levophed running at 0.3mcg/kg/min, sedated with propofol, versed, and fentanyl. HOB elevated. usama heels and elbows offloaded.
[2020-05-28 08:44] LABS: ABG BASE EXCESS -5.5 mmol/L; ABG OXYGEN SATURATION 90.6 % (92.0-98.5); ABG PCO2 42.4 mmHg (35.0-45.0); ABG PH 7.304 (7.350-7.450); ABG PO2 59.3 mmHg (75.0-100.0); AaDO2 611.3 mmHg; COHb 0.7 % (0.5-1.5); MetHb 0.1 % (0.0-1.5); O2Hb 89.9 % (94.0-97.0); PEEP,BG 12 cm H2O; SITE, ABG Right Femoral; VENT MODE, BG pcv 42
[2020-05-28] MEDS: PROSOURCE / PROSTAT (PYXIS) 30 ML UDC GT SCH ×3 (09:00→18:12)
[2020-05-28] MEDS: PANTOPRAZOLE 40 MG/PACK PACK NG SCH (09:11)
[2020-05-28] MEDS: APIXABAN 2.5 MG TABLET PO SCH ×2 (09:12→18:12)
--- NOTE | 2020-05-28 09:23 | NUR ---
TEMPERATURE STILL 103.1 3 HRS AFTER TYLENOL. NOTIFIED LINE ASSIGNER LAURIE. CALLED [employer] FOR COOLING BLANKET. ICE PACKS APPLIED TO PULSE POINTS
--- NOTE | 2020-05-28 10:15 | NUR ---
Placed on cooling blanket
--- NOTE | 2020-05-28 10:49 | NUR ---
notified Dr Reynolds of pt's persistent fever. Received verbal order for blood cultures x1 now.
[2020-05-28] MEDS ORDERED: NOREPINEPHRINE 8MG/250ML RTU 0 ML IV ONE (11:32)
[2020-05-28] MEDS: MEROPENEM 1 G in IV NS 0.9% 100 ML IV SCH ×2 (12:00→23:28)
[2020-05-28] MEDS: NOREPINEPHRINE 32 MG in IV NS 0.9% 218 ML IV PRN (12:02)
--- NOTE | 2020-05-28 12:04 | NUR ---
RT at bedside for low O2 sat
[2020-05-28] MEDS: VANCOMYCIN 0.75 GM in IV D5W 250 ML IV SCH (14:00)
[2020-05-28] MEDS: FENTANYL CITRAT IV 2,500 MCG in IV NS 0.9% 200 ML IV PRN ×2 (14:54→21:29)
[2020-05-28] MEDS: MIDAZOLAM HCL 100 MG in IV NS 0.9% 80 ML IV PRN ×2 (14:55→21:30)
--- NOTE | 2020-05-28 17:30 | NUR ---
cooling blanket removed. pt is now only warm to the touch.
--- NOTE | 2020-05-28 19:06 | NUR ---
report given to Srinivasa GAMING for GENARO. NAD noted at this time. All drips ongoing at same settings.
[2020-05-28] MEDS: INSULIN GLARGINE, 100 UNIT/ML CARTRIDGE SQ SCH (23:20)
[2020-05-29] VITALS (74 sets, daily range): BP systolic 81–138; BP diastolic 50–103
[2020-05-29] MEDS: PROPOFOL 100 ML IV PRN ×3 (02:31→15:57)
[2020-05-29] MEDS ORDERED: NOREPINEPHRINE 4 MG/4 ML AMPUL IV ONE (03:26)
[2020-05-29] MEDS: NOREPINEPHRINE 32 MG in IV NS 0.9% 218 ML IV PRN ×3 (03:43→21:36)
[2020-05-29 05:32] LABS: BASOPHILS # (AUTO) 0.1 /CMM (0.0-0.2); BASOPHILS % (AUTO) 0.4 % (0.0-2.0); EOSINOPHILS % (AUTO) 15.4 % (0.0-6.0); HEMATOCRIT 31 % (33-45); HEMOGLOBIN 9.9 g/dL (11.5-14.8); LYMPHOCYTES # (AUTO) 0.8 /CMM (0.8-4.8); LYMPHOCYTES % (AUTO) 3.5 % (20.0-44.0); MEAN CORPUSCULAR HGB CONC 31 g/dl (31.0-36.0); MEAN CORPUSCULAR VOLUME 93 fL (82-100); MONOCYTES # (AUTO) 0.8 /CMM (0.1-1.30); MONOCYTES % (AUTO) 3.4 % (2.0-12.0); NEUTROPHILS # (AUTO) 18.2 /CMM (1.8-8.9); NEUTROPHILS % (AUTO) 77.3 % (43.0-81.0); PLATELET COUNT (AUTO) 170 /CMM (150-450); RED BLOOD CELL COUNT(AUTO) 3.39 MIL/uL (4.0-5.2); WHITE BLOOD COUNT (AUTO) 23.5 K/uL (4.3-11.0)
[2020-05-29 05:55] LABS: CALCIUM, SERUM 8.6 mg/dL (8.5-10.1); CREATININE 2.6 mg/dL (0.6-1.3); MAGNESIUM 2.2 mg/dL (1.8-2.4); PHOSPHORUS 4.9 mg/dL (2.5-4.9); POTASSIUM 4.9 mmol/L (3.5-5.1)
[2020-05-29] MEDS: BLOOD SUGAR DIAGNOSTIC 1 EACH STRIP IN SCH ×4 (06:16→23:36)
[2020-05-29] MEDS: INSULIN REGULAR, HUMAN 100 UNIT/ML 3 ML VIAL SQ PRN ×4 (06:17→23:37)
--- NOTE | 2020-05-29 08:15 | NUR ---
Patient remains in no acute distress in bed. patient tolerated vent setting well and continue to be sedated on versed, fentanyl and propofol. patient continues on Levo at 0.3 with blood pressure above 90. Patient tolerating feeding via NG tube. bed in low lock position with rails up x 2. call light within reach and all safety measures ensured and carried out. will endorse care to am RN Indiar for continuity of care.
[2020-05-29 08:20] LABS: ABG OXYGEN SATURATION 92.3 % (92.0-98.5); ABG PCO2 46.8 mmHg (35.0-45.0); ABG PH 7.214 (7.350-7.450); ABG PO2 68.9 mmHg (75.0-100.0); AaDO2 597.3 mmHg; COHb 1.5 % (0.5-1.5); MetHb 0.3 % (0.0-1.5); O2Hb 90.6 % (94.0-97.0); PEEP,BG 14 cm H2O; SITE, ABG Right Radial; VENT MODE, BG AC / PC; VT, ABG 42 mL
[2020-05-29] MEDS: PANTOPRAZOLE 40 MG/PACK PACK NG SCH (09:35)
[2020-05-29] MEDS: PROSOURCE / PROSTAT (PYXIS) 30 ML UDC GT SCH ×3 (09:35→18:10)
[2020-05-29] MEDS: FENTANYL CITRAT IV 2,500 MCG in IV NS 0.9% 200 ML IV PRN ×2 (09:43→21:47)
[2020-05-29] MEDS: MIDAZOLAM HCL 100 MG in IV NS 0.9% 80 ML IV PRN (09:44)
[2020-05-29] MEDS: APIXABAN 2.5 MG TABLET PO SCH ×2 (09:55→18:10)
[2020-05-29] MEDS: MEROPENEM 1 G in IV NS 0.9% 100 ML IV SCH ×2 (13:07→23:59)
[2020-05-29] MEDS: VANCOMYCIN 0.75 GM in IV D5W 250 ML IV SCH (14:00)
--- NOTE | 2020-05-29 15:05 | NUR ---
PER PHARMACY HOLD 1400 VANCO DOSE PER LEVEL OF 23.
--- NOTE | 2020-05-29 19:30 | NUR ---
ICU/MAILING MACHINE OPERATOR NO BP, DAY RN TURNED OF SEDATION OF DIPRIVAN. CHARGE NURSE NOTIFIED.NO BLOOD PRESSURE. FAMILY CALLED ABOUT CODE STATUS.
--- NOTE | 2020-05-29 20:30 | NUR ---
ICU/EXPLOSIVES DETONATOR FAMILY AT HOSPITAL. NO BLOOD PRESSURE. FAMILY BROUGHT TO BEDSIDE. CALLED TO GET SECOND PRESSOR.
--- NOTE | 2020-05-29 21:00 | NUR ---
ICU/ELECTRON GUN ASSEMBLER ORDER PLACED FOR SECOND PRESSOR BY CHARGE NURSE, PHARMACY GONE CHARGE MIXING PRESSOR. FAMILY TALKING ABOUT CODE STATUS.
--- NOTE | 2020-05-29 21:30 | NUR ---
ICU/TEACHER OF THE SIGHT IMPAIRED FAMILY MADE PT A DNR, FROM FULL CODE. CHARGE NURSE MADE AWARE OF THIS AND ORDERS PLACED IN COMPUTER.
[2020-05-29] MEDS ORDERED: PHENYLEPHRINE 10 MG/ML VIAL ONE (21:39)
--- NOTE | 2020-05-29 21:45 | NUR ---
ICU/PRINTED CIRCUIT BOARD PANELS DEVELOPER SECOND PRESSOR UP AND RUNNING, STILL UNABLE TO GET BP. CHARGE NURSE AT BEDSIDE TITRATING PER HOSPITAL PROTOCAL. CONTINUE TO MONITOR THIS PT AND HIS BLOOD PRESSURE. FAMILY AT BEDSIDE.
[2020-05-29] MEDS: PHENYLEPHRINE 100 MG in IV NS 0.9% 240 ML IV PRN (21:46)
--- NOTE | 2020-05-29 23:20 | NUR ---
ICU/STYLIST APPRENTICE SECOND PRESSOR UP, TITRATION OF PILI AT 2MCG, PT CURRENTLY HAD A BLOOD PRESSURE. WILL CONTINUE TO MONITOR THIS PT AND HER BLOOD PRESSURE.
[2020-05-29] MEDS: INSULIN GLARGINE, 100 UNIT/ML CARTRIDGE SQ SCH (23:35)
[2020-05-30] VITALS (81 sets, daily range): BP systolic 81–122; BP diastolic 57–93
[2020-05-30] MEDS: NOREPINEPHRINE 32 MG in IV NS 0.9% 218 ML IV PRN ×5 (02:36→20:58)
--- NOTE | 2020-05-30 04:55 | NUR ---
ICU/PAPER STRIPPER PT @0400 VITAL SIGNS HAD TEMP OF 102.6, COOLING MEASURES WERE DONE. PT PLACED WITH A COOLING BLANKET WHICH WAS ALREADY IN ROOM. WILL MONITOR PT'S TEMP.
[2020-05-30 05:07] LABS: BASOPHILS # (AUTO) 0.2 /CMM (0.0-0.2); BASOPHILS % (AUTO) 0.7 % (0.0-2.0); CALCIUM, SERUM 8.8 mg/dL (8.5-10.1); EOSINOPHILS % (AUTO) 3.8 % (0.0-6.0); HEMATOCRIT 34 % (33-45); HEMOGLOBIN 10.3 g/dL (11.5-14.8); LYMPHOCYTES # (AUTO) 1.3 /CMM (0.8-4.8); LYMPHOCYTES % (AUTO) 4.9 % (20.0-44.0); MAGNESIUM 2.6 mg/dL (1.8-2.4); MEAN CORPUSCULAR HGB CONC 30 g/dl (31.0-36.0); MEAN CORPUSCULAR VOLUME 95 fL (82-100); MONOCYTES # (AUTO) 1.4 /CMM (0.1-1.30); MONOCYTES % (AUTO) 5.1 % (2.0-12.0); NEUTROPHILS # (AUTO) 23.3 /CMM (1.8-8.9); NEUTROPHILS % (AUTO) 85.5 % (43.0-81.0); PLATELET COUNT (AUTO) 241 /CMM (150-450); WHITE BLOOD COUNT (AUTO) 27.3 K/uL (4.3-11.0)
[2020-05-30] MEDS ORDERED: PHENYLEPHRINE 10 MG/ML VIAL ONE (05:28)
[2020-05-30] MEDS: PHENYLEPHRINE 100 MG in IV NS 0.9% 240 ML IV PRN ×4 (05:35→23:47)
[2020-05-30 05:55] LABS: PHOSPHORUS 8.3 mg/dL (2.5-4.9); POTASSIUM 6.7 mmol/L (3.5-5.1)
[2020-05-30] MEDS: BLOOD SUGAR DIAGNOSTIC 1 EACH STRIP IN SCH ×4 (06:17→23:24)
[2020-05-30] MEDS: INSULIN REGULAR, HUMAN 100 UNIT/ML 3 ML VIAL SQ PRN (06:19)
--- NOTE | 2020-05-30 06:30 | NUR ---
ICU/GLUING MACHINE ADJUSTER CRITICAL LABS WERE CALLED, HOWEVER THERE WAS NO RESPONDS WILL PASS ON TO DAY NURSE. CRITICAL LAB OF K-6.7, PHOS-8.3, BUN-98.
[2020-05-30] MEDS ORDERED: VANCOMYCIN 0.75 GM in IV D5W 250 ML IV SCH (09:00)
[2020-05-30] MEDS: APIXABAN 2.5 MG TABLET PO SCH ×2 (10:03→17:16)
[2020-05-30] MEDS: FENTANYL CITRAT IV 2,500 MCG in IV NS 0.9% 200 ML IV PRN ×2 (10:04→21:58)
[2020-05-30] MEDS: PROSOURCE / PROSTAT (PYXIS) 30 ML UDC GT SCH ×3 (10:05→17:14)
[2020-05-30] MEDS: MIDAZOLAM HCL 100 MG in IV NS 0.9% 80 ML IV PRN ×3 (10:05)
[2020-05-30] MEDS: PANTOPRAZOLE 40 MG/PACK PACK NG SCH (10:31)
[2020-05-30 10:44] LABS: ABG PCO2 48.4 mmHg (35.0-45.0); ABG PH 7.111 (7.350-7.450); ABG PO2 58.1 mmHg (75.0-100.0); AaDO2 606.5 mmHg; COHb 0.3 % (0.5-1.5); MetHb 0.4 % (0.0-1.5); O2Hb 84.4 % (94.0-97.0); PEEP,BG 14 cm H2O; SITE, ABG Right Radial; VENT MODE, BG AC 24 / PC 42
--- NOTE | 2020-05-30 11:00 | NUR ---
VENT CHANGES BELOW PER DR. CHAVES: PC 44 Addendum: 05/30/20 at 1100 by NELLY DERAS RT Amended: Links added.
[2020-05-30] MEDS: ACETAMINOPHEN 650 MG/20.3 ML UDC NG PRN (12:52)
[2020-05-30] MEDS: MEROPENEM 1 G in IV NS 0.9% 100 ML IV SCH ×2 (12:52→23:28)
[2020-05-30] MEDS ORDERED: SODIUM BICARBONATE SYR 50 MEQ/50 ML DISP.SYRIN IV ONE (17:00)
--- NOTE | 2020-05-30 20:21 | NUR ---
RT NOTE PT RECEIVED INTUBATED WITH 7.5 ET TUBE @ 22 CM ON LEFT LIP LINE. CUFF INFLATED. AMBU BAG @ HOB. SX DONE, SMALL SECRETIONS NOTED. ALARMS ON AND AUDIBLE. NO DISTRESS NOTED AT THIS TIME. WILL CONTINUE TO MONITOR CLOSELY. VENT PLUGGED TO RED OUTLET. Addendum: 05/30/20 at 2020 by JAYDE ALMEIDA RT Amended: Links added.
[2020-05-30] MEDS: INSULIN GLARGINE, 100 UNIT/ML CARTRIDGE SQ SCH (22:00)
--- NOTE | 2020-05-30 22:43 | NUR ---
TOPPER PRESS OPERATOR AUTOMATIC NOTES BLOOD GLUCOSE 75, LOW ACTING INSULIN HELD
--- NOTE | 2020-05-30 23:25 | NUR ---
PAYROLL EXAMINER NOTES BLOOD GLUCOSE 75, NO COVERAGE PER SLIDING SCALE
[2020-05-31] VITALS (14 sets, daily range): BP systolic 74–117; BP diastolic 41–65
[2020-05-31] MEDS: MIDAZOLAM HCL 100 MG in IV NS 0.9% 80 ML IV PRN ×2 (00:02→13:17)
[2020-05-31] MEDS: NOREPINEPHRINE 32 MG in IV NS 0.9% 218 ML IV PRN ×3 (01:38→09:30)
[2020-05-31] MEDS ORDERED: PHENYLEPHRINE 10 MG/ML VIAL ONE (04:23)
[2020-05-31] MEDS: PHENYLEPHRINE 100 MG in IV NS 0.9% 240 ML IV PRN ×3 (04:39→15:09)
[2020-05-31 04:58] LABS: BASOPHILS # (AUTO) 0.1 /CMM (0.0-0.2); BASOPHILS % (AUTO) 0.6 % (0.0-2.0); EOSINOPHILS % (AUTO) 1.9 % (0.0-6.0); HEMATOCRIT 30 % (33-45); HEMOGLOBIN 8.7 g/dL (11.5-14.8); LYMPHOCYTES # (AUTO) 1.2 /CMM (0.8-4.8); LYMPHOCYTES % (AUTO) 5.2 % (20.0-44.0); MEAN CORPUSCULAR HGB CONC 29 g/dl (31.0-36.0); MEAN CORPUSCULAR VOLUME 101 fL (82-100); MONOCYTES # (AUTO) 0.9 /CMM (0.1-1.30); MONOCYTES % (AUTO) 3.9 % (2.0-12.0); NEUTROPHILS # (AUTO) 21.2 /CMM (1.8-8.9); NEUTROPHILS % (AUTO) 88.4 % (43.0-81.0); PLATELET COUNT (AUTO) 168 /CMM (150-450); RED BLOOD CELL COUNT(AUTO) 2.98 MIL/uL (4.0-5.2); WHITE BLOOD COUNT (AUTO) 23.9 K/uL (4.3-11.0)
[2020-05-31 05:21] LABS: CALCIUM, SERUM 7.6 mg/dL (8.5-10.1); CHLORIDE 111 mmol/L (98-107); CREATININE 3.7 mg/dL (0.6-1.3); MAGNESIUM 2.4 mg/dL (1.8-2.4); SODIUM SERUM 144 mmol/L (136-145)
[2020-05-31 05:38] LABS: CARBON DIOXIDE 10 mmol/L (21-32); GLUCOSE 25 mg/dL (74-106)
[2020-05-31 05:39] LABS: PHOSPHORUS 12.2 mg/dL (2.5-4.9); UREA NITROGEN, BLOOD 115 mg/dL (7-18)
[2020-05-31] MEDS ORDERED: NOREPINEPHRINE 4 MG/4 ML AMPUL IV ONE (05:50)
[2020-05-31] MEDS: DEXTROSE 50%-WATER 50 ML DISP.SYRIN IV PRN ×6 (06:00→14:17)
[2020-05-31] MEDS: BLOOD SUGAR DIAGNOSTIC 1 EACH STRIP IN SCH ×2 (06:00→14:22)
--- NOTE | 2020-05-31 07:00 | NUR ---
RN NOTES RECEIVED PT ON BED INTUBATED, UNSTABLE, UNABLE TO GET BP AT TIME,S MD AWARE, O2 SAT IN LOW 80'S . CONTINUE TO MONITOR .
[2020-05-31] MEDS: PANTOPRAZOLE 40 MG/PACK PACK NG SCH (08:28)
[2020-05-31] MEDS: APIXABAN 2.5 MG TABLET PO SCH (08:28)
[2020-05-31] MEDS: PROSOURCE / PROSTAT (PYXIS) 30 ML UDC GT SCH ×2 (08:30→12:48)
[2020-05-31 08:35] LABS: BILIRUBIN,DIRECT 0.8 mg/dL (0.0-0.2)
[2020-05-31] MEDS: GLUCERNA 1.2 1,000 ML BOTTLE NG PRN (08:37)
[2020-05-31 09:12] LABS: ABG BASE EXCESS -27.3 mmol/L; ABG OXYGEN SATURATION 91.9 % (92.0-98.5); ABG PCO2 34.3 mmHg (35.0-45.0); ABG PH 6.823 (7.350-7.450); AaDO2 584.7 mmHg; COHb 0.3 % (0.5-1.5); MetHb 0.5 % (0.0-1.5); O2Hb 91.2 % (94.0-97.0); SITE, ABG Left Radial; VENT MODE, BG PC 44 RR 24 +14 100%
[2020-05-31] MEDS: FENTANYL CITRAT IV 2,500 MCG in IV NS 0.9% 200 ML IV PRN (09:15)
--- NOTE | 2020-05-31 12:45 | NUR ---
RN NOTES BLOOD GLUCOSE SHOWED = 13 TWICE, , D50 IV GIVENx2, DR WILLAMS NOTIFIED , NEW ORDER RECEIVED FOR D10 IV AT 100CC/HR .
[2020-05-31] MEDS ORDERED: GLUCAGON,HUMAN RECOMBINANT 1 MG/VIAL VIAL IM STA (12:57)
[2020-05-31] MEDS: MEROPENEM 1 G in IV NS 0.9% 100 ML IV SCH (13:11)
[2020-05-31] MEDS ORDERED: DEXTROSE 10% IN WATER 250 ML BAG IV SCH ×2 (13:30→14:00)
[2020-05-31] MEDS ORDERED: DEXTROSE 10% IN WATER 250 ML BAG IV ONE (13:30)
[2020-05-31] MEDS ORDERED: IV 10% DEXTROSE 1,000 ML IV SCH (14:00)
--- NOTE | 2020-05-31 14:00 | NUR ---
RN NOTES PT IS VERY UNSTABLE, PT'S DAUGHTER, TEJA NOTIFED REGARDING HER MOTHER STATUS. DAUGHTER IS ABLE TO VISIT HER MOM PER DR CHAVES ORDER ., BUT IRIS STATED THAT SHE HAS SEEM HER MOM YESTERDAY. VSS UNSTABLE. PT IS DNR . CONTINUE TO MONITOR .
--- NOTE | 2020-05-31 17:40 | NUR ---
RN NOTE PT DNR STATUS. SB WITH WIDE QRS COMPLEXES NOTED ON MONITOR, PROCEEDING TO ASYSTOLE. NO APPRECIABLE HEART TONES. NO FEMORAL PULSES PALPABLE. PUPILS FIXED AND DILATED. NO SPONTANEOUS RESPIRATIONS. PRONOUNCED AT 1740. FAMILY NOTIFIED BY PHONE.
--- NOTE | 2020-05-31 17:40 | NUR ---
RN NOTES PT IS DNR STATUS, NOTED ASYSTOLE ,NO BP , NO PALPABLE PULSES, NO SPONTANEOUS RESPIRATION , AREFLEXIVE, PRONOUNCED AT 1740. DR WILLAMS AND PT'S DAUGHTER ( TEJA ) NOTIFED.
== END 2020-05-31 17:40 | disposition expired | DRG 720 ==
LOC: ER 14:49 → ICU 16:56
PROVIDERS: ADMIT Nurse Practitioner Acute Care; ATTEND Nurse Practitioner Acute Care
PROC: XW033E5 Introduction of Remdesivir Anti-infective into Peripheral Vein, Percutaneous Approach, New Technology Group 5 (ICD-10-PCS; principal; 2020-05-03)
PROC: XW13325 Transfusion of Convalescent Plasma (Nonautologous) into Peripheral Vein, Percutaneous Approach, New Technology Group 5 (ICD-10-PCS; 2020-05-04)
PROC: 05HM33Z Insertion of Infusion Device into Right Internal Jugular Vein, Percutaneous Approach (ICD-10-PCS; 2020-05-07)
PROC: B543ZZA Ultrasonography of Right Jugular Veins, Guidance (ICD-10-PCS; 2020-05-07)
PROC: 0BH18EZ Insertion of Endotracheal Airway into Trachea, Via Natural or Artificial Opening Endoscopic (ICD-10-PCS; 2020-05-10)
PROC: 5A1955Z Respiratory Ventilation, Greater than 96 Consecutive Hours (ICD-10-PCS; 2020-05-10)
DX: A41.89 Other specified sepsis (principal); U07.1 COVID-19; Z66 Do not resuscitate; Z51.5 Encounter for palliative care; N17.0 Acute kidney failure with tubular necrosis; J96.01 Acute respiratory failure with hypoxia; J12.89 Other viral pneumonia; E11.9 Type 2 diabetes mellitus without complications; E87.1 Hypo-osmolality and hyponatremia; I10 Essential (primary) hypertension; E66.01 Morbid (severe) obesity due to excess calories; D69.6 Thrombocytopenia, unspecified; D68.59 Other primary thrombophilia; E78.1 Pure hyperglyceridemia; J90 Pleural effusion, not elsewhere classified; R74.01 Elevation of levels of liver transaminase levels; E11.649 Type 2 diabetes mellitus with hypoglycemia without coma; G47.33 Obstructive sleep apnea (adult) (pediatric); Z68.41 Body mass index [BMI] 40.0-44.9, adult; E87.0 Hyperosmolality and hypernatremia; T79.7XXA Traumatic subcutaneous emphysema, initial encounter; X58.XXXA Exposure to other specified factors, initial encounter; Y92.89 Other specified places as the place of occurrence of the external cause; G93.41 Metabolic encephalopathy; E87.5 Hyperkalemia; J15.9 Unspecified bacterial pneumonia; R65.21 Severe sepsis with septic shock; E87.2 Acidosis
CPT/HCPCS: 31720; 36415; 36569; 36600; 71045-TC; 71046; 80048-TC; 80053-TC; 80061-TC; 80076-TC; 80202-TC; 81001; 82247-TC; 82248-TC; 82550-TC; 82570-TC; 82728-TC; 82803-TC; 82947-TC; 82962-TC; 83605-TC; 83615-TC; 83735-TC; 83970; 84100-TC; 84155; 84155-TC; 84165; 84300-TC; 84443-TC; 84478-TC; 84484-TC; 85025-TC; 85378-TC; 85610-TC; 85730-TC; 86140; 86140-TC; 86480; 86850-TC; 87040-TC; 87070-TC; 87081-TC; 87086-TC; 92950-TC; 94002-TC; 94003-TC; 94760-TC; 94762-TC; 94799-TC; A4216; A4217; A6253; C1751; G0378; J0171; J0330; J0456; J0461; J0692; J0696; J1100; J1200; J1610; J1650; J1815; J2185; J2250; J2370; J3010; J3262; J3370; J3480; J3490; J7030; J7040; J7050; J7060; P9017-BL; U0003